=== PATIENT | female | born 1940 | race Caucasian/White ===

== ENCOUNTER → 2016-08-09 | Outpatient (CLI) | payer MEDICARE, BC ==
[~2016-08-09] MED LIST: ALIS1TAB6 PO; ASP81TEC PO; CLN.1T PO; CTLP20T PO; DILT120C PO; EST1.25T PO; ESTR0.5T PO; FEXO-104 PO; FURO40TA4 PO; HYDR-2890 PO; KCL10CCR PO; LVT.025T PO; MECL12.579 PO; METO100T2 PO; METO100T5 PO; METR500T PO; OMEP40CA36 PO; PHEN118S12 PO; PRM50SU PR
--- NOTE | 2016-08-09 14:02 | Diagnostic Imaging Report ---
Right breast diagnostic mammogram. CAD is utilized. COMPARISON: 02/10/2016. FINDINGS: The right breast is composed of heterogeneously dense parenchyma which may decrease mammographic sensitivity. A biopsy clip is again seen. There are groups of calcifications that appear similar to the previous study with slight heterogeneity noted. These are located within the upper outer aspect of the right breast. Background heterogeneously dense parenchyma is seen which may decrease mammographic sensitivity. IMPRESSION: Stable groups of calcifications in the upper outer aspect of the right breast. Ultrasound evaluation is pending. ACR BI-RADS Category 0: Incomplete. (Needs additional imaging evaluation). Result letter will be mailed to the patient. Note: At least 10% of breast cancer is not imaged by mammography. Dictated by: Dictated on workstation # [id number]
--- NOTE | 2016-08-09 17:27 | Diagnostic Imaging Report ---
EXAMINATION: Right breast ultrasound. INDICATION: Indeterminate calcifications at the upper outer aspect of the right breast. Dense breast parenchyma. FINDINGS: Unremarkable breast parenchyma is seen in the four-quadrants and retroareolar region with no underlying mass seen. The axilla was also scanned with no underlying abnormality seen. IMPRESSION: Negative study. The calcifications seen on mammography are indeterminate but favored to be benign given their stability. Another followup in six months is recommended when the patient is due for her bilateral mammogram to ensure further stability. ACR BI-RADS Category 3: Probably benign findings. Result letter will be mailed to the patient. Note: At least 10% of breast cancer is not imaged by mammography. Dictated by: Dictated on workstation # [id number]
== END ==
LOC: RAD 07:54
PROVIDERS: ATTEND Nurse Practitioner Family
DX: R92.8 Other abnormal and inconclusive findings on diagnostic imaging of breast (principal)
CPT/HCPCS: 76641

== ENCOUNTER → 2017-04-27 | Outpatient (CLI) | payer MEDICARE ==
--- NOTE | 2017-04-27 11:35 | Diagnostic Imaging Report ---
Indication: 6 month followup right breast calcifications. Comparison is made with prior right mammogram from 08/09/2016 and bilateral mammograms 02/10/2016, 01/12/2015. The current study was also evaluated with a Computer Aided Detection (CAD) system. Both breasts remain heterogeneously dense, limiting the sensitivity of mammography. Clusters of microcalcifications in the upper and outer aspect of the right breast and medial aspect of the right breast appears stable. Calcification in left breast are stable. There is a biopsy clip on the left. No mass is identified. No new calcifications are seen. Axillae are unremarkable. IMPRESSION: BI-RADS category 2 Stable bilateral mammograms. The patient may return to routine annual screening mammography. ACR BI-RADS Category 2: Benign findings. Result letter will be mailed to the patient. Note: At least 10% of breast cancer is not imaged by mammography. Dictated by: Dictated on workstation # [id number]
== END ==
LOC: RAD 08:50
PROVIDERS: ATTEND Nurse Practitioner Family
DX: R92.1 Mammographic calcification found on diagnostic imaging of breast (principal)
CPT/HCPCS: 77066

== ENCOUNTER → 2019-05-23 | Outpatient (CLI) | payer MEDICARE ==
--- NOTE | 2019-05-23 13:39 | Diagnostic Imaging Report ---
PROCEDURE: US Thyroid. TECHNIQUE: Multiple real-time grayscale images were obtained of the thyroid in various projections. INDICATION: Abnormal thyroid labs. FINDINGS: Right lobe of thyroid measures 4.1 x 1.1 x 1.5 cm and left lobe measures 3.6 x 1.0 x 0.9 cm. Isthmus is 2 mm in thickness. Right lobe of thyroid does show several tiny hypoechoic nodules, largest approximately 2-3 mm in size. These appear to be cystic most likely represent colloid cysts. Left lobe is unremarkable. No dominant thyroid mass is detected. IMPRESSION: Probable subcentimeter colloid cyst right lobe of thyroid. The study is otherwise unremarkable. No dominant mass is detected. Dictated by: Dictated on workstation # [id number]
== END ==
LOC: RAD 11:40
PROVIDERS: ATTEND Family Medicine
DX: R94.6 Abnormal results of thyroid function studies (principal)
CPT/HCPCS: 76536

== ENCOUNTER → 2019-05-28 | Outpatient (CLI) | payer MEDICARE ==
--- NOTE | 2019-05-28 11:55 | Diagnostic Imaging Report ---
CLINICAL INDICATION: Patient is hearing music in the house that no one else is hearing. Auditory hallucinations. EXAM: Axial CT scan of the brain performed without IV contrast. All CT scans use one or more of the following dose optimizing techniques: automated exposure control, MA and/or KvP adjustment based on patient size and exam type or iterative reconstruction. COMPARISON: None. FINDINGS: There is no evidence of acute cerebral infarct, intracranial hemorrhage, or gross mass effect. The brain parenchymal volume appears appropriate for patient's age. There is normal markham-white matter distinction. There is no significant midline shift or herniation. There is no evidence of hydrocephalus. The basal cisterns are unremarkable. The skull, extracranial soft tissue, and orbits are unremarkable. The paranasal sinuses are unremarkable. Temporal bones show no significant abnormality. IMPRESSION: Unremarkable CT scan of the brain. Dictated by: Dictated on workstation # [id number]
== END ==
LOC: RAD 10:42
PROVIDERS: ATTEND Nurse Practitioner Family
DX: R44.0 Auditory hallucinations (principal)
CPT/HCPCS: 70450

== ENCOUNTER 2019-09-22 20:48 | Inpatient (IN) | payer MEDICARE ==
[~2019-09-22] VITALS: Ht 160 cm; Wt 62.5 kg
[2019-09-22 20:59] VITALS: BP 145/59
[2019-09-22 21:07] VITALS: BP 139/73
[2019-09-22 21:15] VITALS: BP 148/60
--- NOTE | 2019-09-22 21:15 | NUR ---
WOUND CX SWAB COLLECTED FROM LEFT PHELAN BY Noreen JOSHI APRN.
[2019-09-22] MEDS ORDERED: ACETAMINOPHEN 500 MG TAB (TYLENOL) PO ONE (21:30)
--- NOTE | 2019-09-22 21:37 | Diagnostic Imaging Report ---
EXAMINATION: Chest 1 view HISTORY: Left foot swelling after a cat bite. COMPARISON: 05/03/2012 FINDINGS: There is mild atelectasis in the lung bases. Otherwise, the lungs are clear without edema or pneumonia. No pleural effusion or pneumothorax. Heart size is normal. IMPRESSION: 1. Mild atelectasis, otherwise clear lungs. Dictated by: Dictated on workstation # [id number]
--- OUTSIDE RECORDS SUMMARY | 2019-09-22 21:37 | XMS REPORT | Continuity of Care Document ---
Author Organization Unknown Address Unknown Phone Unavailable Allergies Active Description Code Type Severity Reaction Onset Reported/Identified Relationship to Patient Clinical Status Yes MELISA Inhibitors [id number] Dr miller Allergy Unknown N/A 03/31/2010 Yes Sulfa (Sulfonamide Antibiotics) [id number] 0491 Drug Allergy Unknown N/A 011 Medications There is no data. 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 12/17/2011 Ot 729.5 PAIN IN LIMB 02/03/2015 CHEMO SOLIS QUALITY CONTROL LAB TECHNICIAN Ot Z12.31 03/03/2015 MARIO ARRINGTON, ROBIN Andres Ot R06.00 03/03/2015 MARIO ARRINGTON, ROBIN Andres Ot Z87.891 03/11/2015 MARIO ARRINGTON, ROBIN Andres Ot R06.00 03/11/2015 ROBIN MARTIN MD Ot Z87.891 02/10/2016 Ot 793.82 INC ONCLUSIVE MAMMOGRAM 02/10/2016 Ot V76.12 OTH SCREEN MAMMO- MALIGN NEOPLASM OF [place] 02/10/2016 Ot 793.80 UNS PEC ABNORMAL MAMMOGRAM 02/10/2016 Ot 793.89 OTH (ABN) FINDINGS ON RADIOLOGICAL EXAMI 02/10/2016 Ot 729.5 PAIN IN LIMB 02/10/2016 Ot 729.81 SWE LLING OF LIMB 02/10/2016 Ot 611.89 OTH ER SPECIFIED DISORDERS OF BREAST 02/10/2016 Ot V67.9 FOLL OW-UP EXAM NOS 02/10/2016 Ot 217 BENIGN NEOPLASM BREAST 02/10/2016 Ot 610.8 YINKA GN MAMM DYSPLAS NEC 02/10/[address] PAIN NOS 02/10/2016 Ot E000.8 OTH ER EXTERNAL CAUSE STATUS 02/10/2016 Ot E849.0 ACC IDENT IN HOME 02/10/2016 Ot E928.9 ACC IDENT NOS 02/10/2016 ROBIN MARTIN MD Ot V76.12 OTH SCREEN MAMMO-MALIGN NEOPLASM OF [place] 02/10/2016 CHEMO SOLIS Ot Z12.31 ENCNTR SCREEN MAMMOGRAM FOR MALIGNANT NE 02/10/2016 ROBIN MARTIN MD Ot R06.00 DYSPNEA, UNSPECIFIED 02/10/2016 ROBIN MARTIN MD Ot Z87.891 PERSONAL HISTORY OF NICOTINE DEPENDENCE 02/11/2016 CHEMO SOLIS Ot Z12.31 ENCNTR SCREEN MAMMOGRAM FOR MALIGNANT NE 03/03/2016 CHEMO SOLIS Ot Z12.31 ENCNTR SCREEN MAMMOGRAM FOR MALIGNANT NE 08/08/2016 Ot 793.82 INC ONCLUSIVE MAMMOGRAM 08/08/2016 Ot V76.12 OTH SCREEN MAMMO- MALIGN NEOPLASM OF [place] 08/08/2016 Ot 793.80 UNS PEC ABNORMAL MAMMOGRAM 08/08/2016 Ot 793.89 OTH (ABN) FINDINGS ON RADIOLOGICAL EXAMI 08/08/2016 Ot 729.5 PAIN IN LIMB 08/08/2016 Ot 729.81 SWE LLING OF LIMB 08/08/2016 Ot 611.89 OTH ER SPECIFIED DISORDERS OF BREAST 08/08/2016 Ot V67.9 FOLL OW-UP EXAM NOS 08/08/2016 Ot 217 BENIGN NEOPLASM BREAST 08/08/2016 Ot 610.8 YINKA GN MAMM DYSPLAS NEC 08/08/[address] PAIN NOS 08/08/2016 Ot E000.8 OTH ER EXTERNAL CAUSE STATUS 08/08/2016 Ot E849.0 ACC IDENT IN HOME 08/08/2016 Ot E928.9 ACC IDENT NOS 08/08/2016 ROBIN MARTIN MD Ot V76.12 OTH SCREEN MAMMO-MALIGN NEOPLASM OF [place] 08/08/2016 CHEMO SOLIS Ot Z12.31 ENCNTR SCREEN MAMMOGRAM FOR MALIGNANT NE 08/08/2016 ROBIN MARTIN MD Ot R06.00 DYSPNEA, UNSPECIFIED 08/08/2016 ROBIN MARTIN MD Ot Z87.891 PERSONAL HISTORY OF NICOTINE DEPENDENCE 08/08/2016 CHEMO SOLIS Ot Z12.31 ENCNTR SCREEN MAMMOGRAM FOR MALIGNANT NE 08/08/2016 ABHILASH, SAL M FOOD PREPARATION KITCHEN AIDE Ot R92.8 OTH ABN AND INCONCLUSIVE FINDINGS ON DX 08/08/2016 SAL HUNG FOOD PREPARATION KITCHEN AIDE Ot R92.8 OTH ABN AND INCONCLUSIVE FINDINGS ON DX 08/09/2016 SAL HUNG FOOD PREPARATION KITCHEN AIDE Ot R92.8 OTH ABN AND INCONCLUSIVE FINDINGS ON DX 08/09/2016 SAL HUNG FOOD PREPARATION KITCHEN AIDE Ot R92.8 OTH ABN AND INCONCLUSIVE FINDINGS ON DX 08/09/2016 SAL HUNG FOOD PREPARATION KITCHEN AIDE Ot R92.8 OTH ABN AND INCONCLUSIVE FINDINGS ON DX 08/09/2016 SAL HUNG FOOD PREPARATION KITCHEN AIDE Ot R92.8 OTH ABN AND INCONCLUSIVE FINDINGS ON DX 08/09/2016 SAL HUNG FOOD PREPARATION KITCHEN AIDE Ot R92.8 OTH ABN AND INCONCLUSIVE FINDINGS ON DX 09/01/2016 SAL HUGN FOOD PREPARATION KITCHEN AIDE Ot R92.8 OTH ABN AND INCONCLUSIVE FINDINGS ON DX 09/06/2016 SAL HUNG FOOD PREPARATION KITCHEN AIDE Ot R92.8 OTH ABN AND INCONCLUSIVE FINDINGS ON DX 02/14/2017 SAL HUNG FOOD PREPARATION KITCHEN AIDE Ot R92.8 OTH ABN AND INCONCLUSIVE FINDINGS ON DX 02/14/2017 Ot 729.5 PAIN IN LIMB 02/14/2017 Ot 729.81 SWE LLING OF LIMB 02/14/2017 Ot 611.89 OTH ER SPECIFIED DISORDERS OF BREAST 02/14/2017 Ot V67.9 FOLL OW-UP EXAM NOS 02/14/2017 Ot 217 BENIGN NEOPLASM BREAST 02/14/2017 Ot 610.8 YINKA GN MAMM DYSPLAS NEC 02/14/[address] PAIN NOS 02/14/2017 Ot E000.8 OTH ER EXTERNAL CAUSE STATUS 02/14/2017 Ot E849.0 ACC IDENT IN HOME 02/14/2017 Ot E928.9 ACC IDENT NOS 02/14/2017 ROBIN MARTIN MD Ot V76.12 OTH SCREEN MAMMO-MALIGN NEOPLASM OF [place] 02/14/2017 CHEMO SOLIS Ot Z12.31 ENCNTR SCREEN MAMMOGRAM FOR MALIGNANT NE 02/14/2017 ROBIN MARTIN MD Ot R06.00 DYSPNEA, UNSPECIFIED 02/14/2017 ROBIN MARTIN MD Ot Z87.891 PERSONAL HISTORY OF NICOTINE DEPENDENCE 02/14/2017 CHEMO SOLIS Ot Z12.31 ENCNTR SCREEN MAMMOGRAM FOR MALIGNANT NE 02/14/2017 SAL HUNG APRN Ot R92.8 OTH ABN AND INCONCLUSIVE FINDINGS ON DX 02/14/2017 SAL HUNG APRN Ot R92.8 OTH ABN AND INCONCLUSIVE FINDINGS ON DX 04/23/2017 SAL HUNG APRN Ot R92.1 MAMMOGRAPHIC CALCIFCN FOUND ON DIAGNOSTI 04/27/2017 Ot 729.5 PAIN IN LIMB 04/27/2017 Ot 729.81 SWE LLING OF LIMB 04/27/2017 Ot 611.89 OTH ER SPECIFIED DISORDERS OF BREAST 04/27/2017 Ot V67.9 FOLL OW-UP EXAM NOS 04/27/2017 Ot 217 BENIGN NEOPLASM BREAST 04/27/2017 Ot 610.8 YINKA GN MAMM DYSPLAS NEC 04/27/[address] PAIN NOS 04/27/2017 Ot E000.8 OTH ER EXTERNAL CAUSE STATUS 04/27/2017 Ot E849.0 ACC IDENT IN HOME 04/27/2017 Ot E928.9 ACC IDENT NOS 04/27/2017 MARIO ARRINGTON, ROBIN Andres Ot V76.12 OTH SCREEN MAMMO-MALIGN NEOPLASM OF [place] 04/27/2017 CHEMO SOLIS Ot Z12.31 ENCNTR SCREEN MAMMOGRAM FOR MALIGNANT NE 04/27/2017 ROBIN MARTIN MD Ot R06.00 DYSPNEA, UNSPECIFIED 04/27/2017 ROBIN MARTIN MD Ot Z87.891 PERSONAL HISTORY OF NICOTINE DEPENDENCE 04/27/2017 CHEMO SOLIS Ot Z12.31 ENCNTR SCREEN MAMMOGRAM FOR MALIGNANT NE 04/27/2017 SAL HUNG APRN Ot R92.8 OTH ABN AND INCONCLUSIVE FINDINGS ON DX 04/27/2017 SAL HUNG APRN Ot R92.1 MAMMOGRAPHIC CALCIFCN FOUND ON DIAGNOSTI 04/30/2017 SAL HUNG APRN Ot R92.1 MAMMOGRAPHIC CALCIFCN FOUND ON DIAGNOSTI 06/15/2017 SAL HUNG APRN Ot R92.1 MAMMOGRAPHIC CALCIFCN FOUND ON DIAGNOSTI 06/20/2017 SAL HUNG APRN Ot R92.1 MAMMOGRAPHIC CALCIFCN FOUND ON DIAGNOSTI 05/20/2019 MARIO MD, ROBIN A Ot V76.12 OTH SCREEN MAMMO-MALIGN NEOPLASM OF [place] 05/20/2019 CHEMO SOLIS QUALITY CONTROL LAB TECHNICIAN Ot Z12.31 ENCNTR SCREEN MAMMOGRAM FOR MALIGNANT NE 05/20/2019 ROBIN MARTIN MD Ot R06.00 DYSPNEA, UNSPECIFIED 05/20/2019 ROBIN MARTIN MD Ot Z87.891 PERSONAL HISTORY OF NICOTINE DEPENDENCE 05/20/2019 CHEMO SOLISP Ot Z12.31 ENCNTR SCREEN MAMMOGRAM FOR MALIGNANT NE 05/20/2019 SAL HUNG APRN Ot R92.8 OTH ABN AND INCONCLUSIVE FINDINGS ON DX 05/20/2019 SAL HUNG FOOD PREPARATION KITCHEN AIDE Ot R92.1 MAMMOGRAPHIC CALCIFCN FOUND ON DIAGNOSTI 05/22/2019 ROBIN MARTIN MD Ot V76.12 OTH SCREEN MAMMO-MALIGN NEOPLASM OF [place] 05/22/2019 CHEMO SOLISP Ot Z12.31 ENCNTR SCREEN MAMMOGRAM FOR MALIGNANT NE 05/22/2019 ROBIN MARTIN MD Ot R06.00 DYSPNEA, UNSPECIFIED 05/22/2019 ROBIN MARTIN MD Ot Z87.891 PERSONAL HISTORY OF NICOTINE DEPENDENCE 05/22/2019 CHEMO SOLISP Ot Z12.31 ENCNTR SCREEN MAMMOGRAM FOR MALIGNANT NE 05/22/2019 SAL HUNG APRN Ot R92.8 OTH ABN AND INCONCLUSIVE FINDINGS ON DX 05/22/2019 SAL HUNG FOOD PREPARATION KITCHEN AIDE Ot R92.1 MAMMOGRAPHIC CALCIFCN FOUND ON DIAGNOSTI 05/23/2019 ROBIN MARTIN MD Ot V76.12 OTH SCREEN MAMMO-MALIGN NEOPLASM OF [place] 05/23/2019 CHEMO OSLIS QUALITY CONTROL LAB TECHNICIAN Ot Z12.31 ENCNTR SCREEN MAMMOGRAM FOR MALIGNANT NE 05/23/2019 ROBIN MARTIN MD Ot R06.00 DYSPNEA, UNSPECIFIED 05/23/2019 ROBIN MARTIN MD Ot Z87.891 PERSONAL HISTORY OF NICOTINE DEPENDENCE 05/23/2019 CHEMO SOLISP Ot Z12.31 ENCNTR SCREEN MAMMOGRAM FOR MALIGNANT NE 05/23/2019 SAL HUNG APRN Ot R92.8 OTH ABN AND INCONCLUSIVE FINDINGS ON DX 05/23/2019 SAL HUNG FOOD PREPARATION KITCHEN AIDE Ot R92.1 MAMMOGRAPHIC CALCIFCN FOUND ON DIAGNOSTI 05/26/2019 ROBIN MARTIN MD Ot R94.6 ABNORMAL RESULTS OF THYROID FUNCTION SAI 05/27/2019 ROBIN MARTIN MD Ot V76.12 OTH SCREEN MAMMO-MALIGN NEOPLASM OF [place] 05/27/2019 CHEMO SOLIS Ot Z12.31 ENCNTR SCREEN MAMMOGRAM FOR MALIGNANT NE 05/27/2019 ROBIN MARTIN MD Ot R06.00 DYSPNEA, UNSPECIFIED 05/27/2019 MARIO ARRINGTON, ROBIN Andres Ot Z87.891 PERSONAL HISTORY OF NICOTINE DEPENDENCE 05/27/2019 CHEMO SOLIS Ot Z12.31 ENCNTR SCREEN MAMMOGRAM FOR MALIGNANT NE 05/27/2019 SAL HUNG APRN Ot R92.8 OTH ABN AND INCONCLUSIVE FINDINGS ON DX 05/27/2019 SAL HUNG APRN Ot R92.1 MAMMOGRAPHIC CALCIFCN FOUND ON DIAGNOSTI 05/27/2019 ROBIN MARTIN MD Ot R94.6 ABNORMAL RESULTS OF THYROID FUNCTION SAI 05/27/2019 ROBIN MARTIN MD Ot V76.12 OTH SCREEN MAMMO-MALIGN NEOPLASM OF [place] 05/27/2019 CHEMO SOLIS Ot Z12.31 ENCNTR SCREEN MAMMOGRAM FOR MALIGNANT NE 05/27/2019 ROBIN MARTIN MD Ot R06.00 DYSPNEA, UNSPECIFIED 05/27/2019 ROBIN MARTIN MD Ot Z87.891 PERSONAL HISTORY OF NICOTINE DEPENDENCE 05/27/2019 CHEMO SOLIS Ot Z12.31 ENCNTR SCREEN MAMMOGRAM FOR MALIGNANT NE 05/27/2019 SAL HUNG APRN Ot R92.8 OTH ABN AND INCONCLUSIVE FINDINGS ON DX 05/27/2019 SAL HUNG APRN Ot R92.1 MAMMOGRAPHIC CALCIFCN FOUND ON DIAGNOSTI 05/27/2019 ROBIN MARTIN MD Ot R94.6 ABNORMAL RESULTS OF THYROID FUNCTION SAI 05/28/2019 ROBIN MARTIN MD Ot V76.12 OTH SCREEN MAMMO-MALIGN NEOPLASM OF [place] 05/28/2019 CHEMO SOLIS Ot Z12.31 ENCNTR SCREEN MAMMOGRAM FOR MALIGNANT NE 05/28/2019 ROBIN MARTIN MD Ot R06.00 DYSPNEA, UNSPECIFIED 05/28/2019 ROBIN MARTIN MD Ot Z87.891 PERSONAL HISTORY OF NICOTINE DEPENDENCE 05/28/2019 CHEMO SOLIS Ot Z12.31 ENCNTR SCREEN MAMMOGRAM FOR MALIGNANT NE 05/28/2019 SAL HUNG APRN Ot R92.8 OTH ABN AND INCONCLUSIVE FINDINGS ON DX 05/28/2019 SAL HUNG APRN Ot R92.1 MAMMOGRAPHIC CALCIFCN FOUND ON DIAGNOSTI 05/28/2019 ROBIN MARTIN MD Ot R94.6 ABNORMAL RESULTS OF THYROID FUNCTION SAI 05/28/2019 ROBIN MARTIN MD Ot V76.12 OTH SCREEN MAMMO-MALIGN NEOPLASM OF [place] 05/28/2019 CHEMO SOLIS Ot Z12.31 ENCNTR SCREEN MAMMOGRAM FOR MALIGNANT NE 05/28/2019 ROBIN MARTIN MD Ot R06.00 DYSPNEA, UNSPECIFIED 05/28/2019 ROBIN MARTIN MD Ot Z87.891 PERSONAL HISTORY OF NICOTINE DEPENDENCE 05/28/2019 CHEMO SOLIS Ot Z12.31 ENCNTR SCREEN MAMMOGRAM FOR MALIGNANT NE 05/28/2019 SAL HUNG APRN Ot R92.8 OTH ABN AND INCONCLUSIVE FINDINGS ON DX 05/28/2019 SAL HUNG APRN Ot R92.1 MAMMOGRAPHIC CALCIFCN FOUND ON DIAGNOSTI 05/28/2019 ROBIN MARTIN MD Ot R94.6 ABNORMAL RESULTS OF THYROID FUNCTION SAI 06/13/2019 ROBIN MARTIN MD Ot R94.6 ABNORMAL RESULTS OF THYROID FUNCTION SAI 06/19/2019 CHEMO SOLIS Ot R44.0 AUDITORY HALLUCINATIONS Procedures There is no data. Results There is no data. Encounters ACCT No. Visit Date/Time Discharge Status Pt. Type Provider Facility Loc./Unit Complaint [id number] 05/28/2019 10:42:00 020 23:59:59 CLS Outpatient CHEMO SOLIS [facility] RAD HALLUCINATION [id number] 05/23/2019 11:40:00 020 23:59:59 CLS Outpatient ROBIN MARTIN MD [facility] RAD ABNORMAL THYROID LABS [id number] 04/27/2017 08:50:00 018 23:59:59 CLS Outpatient SAL HUNG FOOD PREPARATION KITCHEN AIDE [facility] RAD CALCIFICATION RT BREAST [id number] 02/14/2017 09:51:00 017 23:59:59 CLS Preadmit SAL HUNG FOOD PREPARATION KITCHEN AIDE [facility] RAD CALCIFICATIONS R BREAST [id number] 08/14/2016 09:20:00 017 23:59:59 CLS Preadmit CHEMO SOLIS QUALITY CONTROL LAB TECHNICIAN [facility] RAD R92.8 [id number] 08/09/2016 07:54:00 017 23:59:59 CLS Outpatient SAL HUNG FOOD PREPARATION KITCHEN AIDE [facility] RAD 6 MONTH F/U R92.8 [id number] 02/10/2016 12:19:00 016 23:59:59 CLS Outpatient CHEMO SOLIS [facility] RAD SCREENING [id number] 02/10/2015 08:13:00 015 23:59:59 CLS Outpatient ROBIN MARTIN MD Via [facility] RT DYSPNEA,HX OF TOBACCO A BUSE [id number] 01/12/2015 08:15:00 015 23:59:59 CLS Outpatient CHEMO SOLIS [facility] RAD SCREENING [id number] 01/08/2014 08:34:00 014 23:59:59 CLS Outpatient ROBIN MARTIN MD [facility] RAD SCREENING [id number] 09/22/2019 20:49:[address] Emergency ANDREAS JOSHI [facility] [address] ER VOMITING / SOA / WEAKNESS [id number] 05/03/2012 10:30:00 Document Registration [id number] 04/29/2012 08:27:00 Document Registration [id number] 04/18/2012 12:49:00 Document Registration [id number] 01/09/2012 11:17:00 Document Registration [id number] 12/17/2011 15:41:00 Document Registration [id number] 08/09/2011 11:09:00 Document Registration [id number] 03/14/2011 12:51:00 Document Registration [id number] 03/03/2011 10:07:00 Document Registration
[2019-09-22 22:00] VITALS: BP 140/67
[2019-09-22 22:02] LABS: BASOPHILS % (AUTO) 0 % (0-10); EOSINOPHILS % (AUTO) 0 % (0-10); HEMATOCRIT 43 % (35-52); HEMOGLOBIN 14.3 G/DL (11.5-16.0); LYMPHOCYTES # (AUTO) 0.8 X 10^3 (1.0-4.0); LYMPHOCYTES % (AUTO) 4 % (12-44); MEAN CORPUSCULAR HEMOGLOBIN 31 PG (25-34); MEAN CORPUSCULAR HGB CONC 34 G/DL (32-36); MEAN CORPUSCULAR VOLUME 91 FL (80-99); MEAN PLATELET VOLUME 9.8 FL (7.4-10.4); MONOCYTES # (AUTO) 0.7 X 10^3 (0.0-1.0); MONOCYTES % (AUTO) 4 % (0-12); NEUTROPHILS # (AUTO) 19.4 X 10^3 (1.8-7.8); NEUTROPHILS % (AUTO) 93 % (42-75); PLATELET COUNT 207 10^3/uL (130-400); RED CELL DISTRIBUTION WIDTH 13.3 % (10.0-14.5)
[2019-09-22 22:13] LABS: PROTHROMBIN TIME PATIENT 13.9 SEC (12.2-14.7)
[2019-09-22 22:18] LABS: BAND NEUTROPHILS 9 %; BASOPHILS % (MANUAL) 0 %; EOSINOPHILS % (MANUAL) 0 %; LYMPHOCYTES % (MANUAL) 6 %; MONOCYTES % (MANUAL) 8 %; NEUTROPHILS % (MANUAL) 77 %
[2019-09-22 22:19] LABS: RBC MORPH NORMAL
[2019-09-22 22:21] LABS: ALANINE AMINOTRANSFERASE 13 U/L (0-55); ALBUMIN 4.6 GM/DL (3.2-4.5); ALKALINE PHOSPHATASE 72 U/L (40-136); BILIRUBIN,TOTAL 1.7 MG/DL (0.1-1.0); BUN/CREATININE RATIO 21; CALCIUM 9.7 MG/DL (8.5-10.1); CARBON DIOXIDE 20 MMOL/L (21-32); CHLORIDE 101 MMOL/L (98-107); CREATININE SERUM 0.86 MG/DL (0.60-1.30); GFR ESTIMATED > 60; GLUCOSE 117 MG/DL (70-105); POTASSIUM 4.2 MMOL/L (3.6-5.0); SODIUM 135 MMOL/L (135-145); TOTAL PROTEIN 7.6 GM/DL (6.4-8.2)
[2019-09-22] MEDS ORDERED: NS (IVPB) 100 ML ONE (22:39)
[2019-09-22] MEDS ORDERED: AMPICILLIN/SULBACTAM 3 GM VIAL (UNASYN) ONE (22:39)
--- NOTE | 2019-09-22 22:39 | NUR ---
[place] ([facility]) [phone] [place] ([facility]) [phone]
--- OUTSIDE RECORDS SUMMARY | 2019-09-22 22:39 | XMS REPORT | Continuity of Care Document ---
Author Organization Unknown Address Unknown Phone Unavailable Allergies Active Description Code Type Severity Reaction Onset Reported/Identified Relationship to Patient Clinical Status Yes MELISA Inhibitors [id number] Dr miller Allergy Unknown N/A 03/31/2010 Yes Sulfa (Sulfonamide Antibiotics) [id number] 0491 Drug Allergy Unknown N/A 011 Medications There is no data. 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 12/17/2011 Ot 729.5 PAIN IN LIMB 02/03/2015 CHEMO SOLIS PHYSICIAN AIDE Ot Z12.31 03/03/2015 MARIO ARRINGTON, ROBIN Andres [...] Ot V76.12 OTH SCREEN MAMMO-MALIGN NEOPLASM OF [place] 02/10/2016 CHEMO SOLIS Ot Z12.31 ENCNTR SCREEN [...] 08/08/2016 Ot E928.9 ACC IDENT NOS 08/08/2016 RBOIN MARTIN MD Ot V76.12 OTH SCREEN MAMMO-MALIGN NEOPLASM OF [place] 08/08/2016 CHEMO SOLIS Ot Z12.31 ENCNTR SCREEN MAMMOGRAM FOR MALIGNANT NE 08/08/2016 ROBIN MARTIN MD Ot R06.00 DYSPNEA, UNSPECIFIED 08/08/2016 ROBIN MARTIN MD Ot Z87.891 PERSONAL HISTORY OF NICOTINE DEPENDENCE 08/08/2016 CHEMO SOLIS Ot Z12.31 ENCNTR SCREEN MAMMOGRAM FOR MALIGNANT NE 08/08/2016 ABHILASH, SAL M EMBLEM MAKER Ot R92.8 OTH ABN AND INCONCLUSIVE FINDINGS ON DX 08/08/2016 SAL HUNG EMBLEM MAKER Ot R92.8 OTH ABN AND INCONCLUSIVE FINDINGS ON DX 08/09/2016 SAL HUNG EMBLEM MAKER Ot R92.8 OTH ABN AND INCONCLUSIVE FINDINGS ON DX 08/09/2016 SAL HUNG EMBLEM MAKER Ot R92.8 OTH ABN AND INCONCLUSIVE FINDINGS ON DX 08/09/2016 SAL HUNG EMBLEM MAKER Ot R92.8 OTH ABN AND INCONCLUSIVE FINDINGS ON DX 08/09/2016 SAL HUNG EMBLEM MAKER Ot R92.8 OTH ABN AND INCONCLUSIVE FINDINGS ON DX 08/09/2016 SAL HUNG EMBLEM MAKER Ot R92.8 OTH ABN AND INCONCLUSIVE FINDINGS ON DX 09/01/2016 SAL HUNG EMBLEM MAKER Ot R92.8 OTH ABN AND INCONCLUSIVE FINDINGS ON DX 09/06/2016 SAL HUNG EMBLEM MAKER Ot R92.8 OTH ABN AND INCONCLUSIVE FINDINGS ON DX 02/14/2017 SAL HUNG EMBLEM MAKER Ot R92.8 OTH ABN AND INCONCLUSIVE FINDINGS [...] MAMMO-MALIGN NEOPLASM OF [place] 05/20/2019 CHEMO SOLIS PHYSICIAN AIDE Ot Z12.31 ENCNTR SCREEN MAMMOGRAM FOR MALIGNANT NE 05/20/2019 ROBIN MARTIN MD Ot R06.00 DYSPNEA, UNSPECIFIED 05/20/2019 ROBIN MARTIN MD Ot Z87.891 PERSONAL HISTORY OF NICOTINE DEPENDENCE 05/20/2019 CHEMO SOLISP Ot Z12.31 ENCNTR SCREEN MAMMOGRAM FOR MALIGNANT NE 05/20/2019 SAL HUNG APRN Ot R92.8 OTH ABN AND INCONCLUSIVE FINDINGS ON DX 05/20/2019 SAL HUNG EMBLEM MAKER Ot R92.1 MAMMOGRAPHIC CALCIFCN FOUND ON DIAGNOSTI [...] INCONCLUSIVE FINDINGS ON DX 05/22/2019 SAL HUNG EMBLEM MAKER Ot R92.1 MAMMOGRAPHIC CALCIFCN FOUND ON DIAGNOSTI 05/23/2019 ROBIN MARTIN MD Ot V76.12 OTH SCREEN MAMMO-MALIGN NEOPLASM OF [place] 05/23/2019 CHEMO SOLIS PHYSICIAN AIDE Ot Z12.31 ENCNTR SCREEN MAMMOGRAM FOR MALIGNANT NE 05/23/2019 ROBIN MARTIN MD Ot R06.00 DYSPNEA, UNSPECIFIED 05/23/2019 ROBIN MARTIN MD Ot Z87.891 PERSONAL HISTORY OF NICOTINE DEPENDENCE 05/23/2019 CHEMO SOLISP Ot Z12.31 ENCNTR SCREEN MAMMOGRAM FOR MALIGNANT NE 05/23/2019 SAL HUNG APRN Ot R92.8 OTH ABN AND INCONCLUSIVE FINDINGS ON DX 05/23/2019 SAL HUNG EMBLEM MAKER Ot R92.1 MAMMOGRAPHIC CALCIFCN FOUND ON DIAGNOSTI [...] 06/19/2019 CHEMO SOLIS Ot R44.0 AUDITORY HALLUCINATIONS 09/22/2019 CHEMO SOLISP Ot Z12.31 ENCNTR SCREEN MAMMOGRAM FOR MALIGNANT NE 09/22/2019 ROBIN MARTIN MD Ot R06.00 DYSPNEA, UNSPECIFIED 09/22/2019 ROBIN MARTIN MD Ot Z87.891 PERSONAL HISTORY OF NICOTINE DEPENDENCE 09/22/2019 CHEMO SOLISP Ot Z12.31 ENCNTR SCREEN MAMMOGRAM FOR MALIGNANT NE 09/22/2019 ABHILASH, SAL M EMBLEM MAKER Ot R92.8 OTH ABN AND INCONCLUSIVE FINDINGS ON DX 09/22/2019 SAL HUNG APRN Ot R92.1 MAMMOGRAPHIC CALCIFCN FOUND ON DIAGNOSTI 09/22/2019 ROBIN MARTIN MD Ot R94.6 ABNORMAL RESULTS OF THYROID FUNCTION SAI 09/22/2019 CHEMO SOLIS Ot R44.0 AUDITORY HALLUCINATIONS Procedures There is no data. Results There is no data. Encounters ACCT No. Visit Date/Time Discharge Status Pt. Type Provider Facility Loc./Unit Complaint [id number] 05/28/2019 10:42:00 020 23:59:59 CLS Outpatient CHEMO SOLIS [facility] RAD HALLUCINATION [id number] 05/23/2019 11:40:00 020 23:59:59 CLS Outpatient RBOIN MARTIN MD [facility] RAD ABNORMAL THYROID LABS [id number] 04/27/2017 08:50:00 018 23:59:59 CLS Outpatient SAL HUNG APRN [facility] RAD CALCIFICATION RT BREAST [id number] 02/14/2017 09:51:00 017 23:59:59 CLS Preadmit SAL HUNG APRN [facility] RAD CALCIFICATIONS R BREAST [id number] 08/14/2016 09:20:00 017 23:59:59 CLS Preadmit CHEMO SOLIS [facility] RAD R92.8 [id number] 08/09/2016 07:54:00 017 23:59:59 CLS Outpatient SAL HUNG APRN [facility] RAD 6 MONTH F/U R92.8 [id number] 02/10/2016 12:19:00 016 23:59:59 CLS Outpatient CHEMO SOLIS [facility] RAD SCREENING [id number] 02/10/2015 08:13:00 015 23:59:59 CLS Outpatient ROBIN MARTIN MD [facility] RT DYSPNEA,HX OF TOBACCO A BUSE [id number] 01/12/2015 08:15:00 015 23:59:59 CLS Outpatient CHEMO SOLIS [facility] RAD SCREENING [id number] 01/08/2014 08:34:00 014 23:59:59 CLS Outpatient ROBIN MARTIN MD [facility] RAD SCREENING [id number] 09/22/2019 21:20:[address] Inpatient ROBIN MARTIN MD [facility] 4TH LLE CELLULITIS, CAT BITE [id number] 05/03/2012 10:30:00 Document Registration [id number] 04/29/2012 08:27:00 Document Registration [id number] 04/18/2012 12:49:00 Document Registration [id number] 01/09/2012 11:17:00 Document Registration [id number] 12/17/2011 15:41:00 Document Registration [id number] 08/09/2011 11:09:00 Document Registration [id number] 03/14/2011 12:51:00 Document Registration [id number] 03/03/2011 10:07:00 Document Registration
[2019-09-22] MEDS ORDERED: AMPICILLIN/SULBACTAM INJECTION 3 GM in NS (IVPB) 100 ML IV ONE (22:45)
--- NOTE | 2019-09-22 22:45 | ED Integumentary General ---
General Chief Complaint: Skin/Wound Problems Stated Complaint: LLE CELLULITIS, CAT BITE Nursing Triage Note: TO ED VIA POV AND TO COVID-19 PRECAUTION UNIT R/T C/O FEVER, SHAKY, POSSIBLE SEPSIS. PT STATES HER OUTSIDE CAT BIT HER ON LEFT LEG LAST NIGHT. MX CAT BITES. LEFT LEG IS RED AND EDEMATOUS FROM CALF DOWN. Source: patient Exam Limitations: no limitations History of Present Illness Date Seen by Provider: Sep 22, 2019 Time Seen by Provider: 21:04 Initial Comments 79-year-old female who presents to the emergency room with complaints of fever and redness and swelling to her left lower extremity after a cat bite. She reports that she has been inside and outside cat has bitten her once on the right forearm and once on the left allen. She has redness and swelling that extends down from her calf. She reports that she took 500 mg of Keflex by mouth prior to arrival to the emergency room. Timing/Duration: yesterday Associated Symptoms: fever Allergies and Home Medications Allergies Coded Allergies: José Antonio Inhibitors (Unverified Allergy, Unknown, 03/31/10) Sulfa (Sulfonamides) (Unverified Allergy, Unknown, 03/31/10) Home Medications Aspirin 81 Mg Tabec, 81 MG PO DAILY, (Reported) Citalopram Hydrobromide 20 Mg Tablet, 0.5 EACH PO HS, (Reported) Clonidine Hcl 0.1 Mg Tab, 0.5 EACH PO HS, (Reported) Diltiazem Hcl 120 Mg Cap.sr.24h, 120 MG PO DAILY, (Reported) Estradiol 0.5 Mg Tablet, 0.5 MG PO DAILY, (Reported) Fexofenadine Hcl 180 Mg Tablet, 180 MG PO DAILY, (Reported) Furosemide 40 Mg Tablet, 1 EACH PO DAILY, (Reported) Hydrocodone Bit/Acetaminophen 1 Each Tablet, 1 EACH PO NEEDED Prescribed by: LEANA BIRD on 12/17/111822 Levothyroxine Sodium 25 Mcg Tablet, 3 EACH PO DAILY, (Reported) Meclizine Hcl 12.5 Mg Tablet, 1 EACH PO DAILY PRN, (Reported) Metoprolol Tartrate 100 Mg Tablet, 1 EACH PO BID, (Reported) Omeprazole 40 Mg Capsule.dr, 40 MG PO DAILY, (Reported) Potassium Chloride 10 Meq Tablet.sa, 10 MEQ PO DAILY, (Reported) Patient Home Medication List Home Medication List Reviewed: Yes Review of Systems Review of Systems Constitutional: see HPI; No chills, No fever Skin: see HPI, other (redness and swelling to the left lower ext.) All Other Systems Reviewed Negative Unless Noted: Yes Past Qicknjg-Pnjlnx-Ugwlwk Hx Past Med/Social Hx: Reviewed Nursing Past Med/Soc Hx Patient Social History Recent Foreign Travel: No Contact w/Someone Who Travel: No Recent Infectious Disease Expo: No Recent Hopitalizations: No Physical Abuse: No Sexual Abuse: No Mistreated: No Fear: No Immunizations Up To Date Date of Pneumonia Vaccine: Mar 26, 2008 Past Medical History Surgeries: Yes (EXP. LAP AND TOTAL ABD. HYST.) Respiratory: Yes Cardiac: Yes Neurological: No Reproductive Disorders: Yes Gastrointestinal: Yes (GERDS DISEASE) Musculoskeletal: Yes (RIGHT KNEE PAIN) Endocrine: Yes Psychosocial: Yes Blood Disorders: No Family Medical History Reviewed Nursing Family Hx Physical Exam Vital Signs Vital Signs - First Documented 09/22/19 09/22/19 20:58 20:59 Temp 37.3 Pulse 78 Resp 18 B/P (MAP) 148/60 (89) Pulse Ox 98 O2 Delivery Room Air Capillary Refill : Less Than 3 Seconds General Appearance: WD/WN, no apparent distress Respiratory: chest non-tender, lungs clear, normal breath sounds, no respiratory distress, no accessory muscle use Gastrointestinal: normal bowel sounds, non tender, soft, no organomegaly, no pulsatile mass Neurologic/Psychiatric: alert, normal mood/affect, oriented x 3 Skin: normal color, warm/dry Skin Problem Character: swelling (And erythema to the left lower extremity sta rting at the calf extending down to the foot.) Progress/Results/Core Measures Results/Orders My Orders Orders - ANDREAS JOSHI Cbc With Automated Diff (09/22/19 21:02) Comprehensive Metabolic Panel (09/22/19 21:02) Blood Culture (09/22/19 21:02) Sputum Culture (09/22/19 21:02) Protime With Inr (09/22/19 21:02) Partial Thromboplastin Time (09/22/19 21:02) Chest 1 View, Ap/Pa Only (09/22/19 21:02) Ed Iv/Invasive Line Start (09/22/19 21:02) Ed Iv/Invasive Line Start (09/22/19 21:02) Vital Signs Adult Sepsis Patie Q15M (09/22/19 21:02) O2 (09/22/19 21:02) Remove Rings In Anticipation O (09/22/19 21:02) Wound Culture (09/22/19 21:02) Lactic Acid Analyzer (09/22/19 21:02) Manual Differential (09/22/19 21:23) Vital Signs/I&O 09/22/19 09/22/19 09/22/19 09/22/19 20:58 20:59 21:07 21:15 Temp 37.3 37.3 37.3 37.3 Pulse 78 88 78 78 Resp 18 18 18 18 B/P (MAP) 148/60 (89) 145/59 (87) 139/73 (95) 148/60 (89) Pulse Ox 98 97 96 O2 Delivery Room Air Room Air Room Air Room Air Blood Pressure Mean: 91 Departure Communication (Admissions) Time/Spoke to Admitting Phy: 22:00 I have discussed the case with Dr. Muñiz and she agrees to accept the patient to her services. Dr. Berkowitz will also be following the patient. She recommend giving the patient Unasyn for antibiotic coverage. Impression Primary Impression: Cat bite Additional Impression: Cellulitis of left lower extremity Disposition: ADMITTED INPATIENT Condition: Stable/Unchanged Admissions Decision to Admit Reason: Admit from ER (General) Decision to Admit/Date: Sep 22, 2019 Time/Decision to Admit Time: 22:44 Departure-Patient Inst. Referrals: ROBIN MUÑIZ MD (PCP/Family) Primary Care Physician ANDREAS JOSHI Sep 22, 2019 22:45
--- NOTE | 2019-09-22 22:51 | NUR ---
UNASYN OBTAINED FROM MAIN ER SIDE AT THIS TIME. [facility] HERE FOR TRANSPORT. UNASYN TRANSPORTED WITH PT TO BE GIVEN ON ADMIT. JONH CANO NOTIFIED AND WILL ADMINISTER MEDICATION.
[2019-09-22 23:04] VITALS: BP 117/62
[2019-09-22 23:48] VITALS: BP 117/62
[2019-09-23] MEDS ORDERED: ONDANSETRON 4 MG/2 ML (SDV) Z0FRAN IV PRN (00:30)
[2019-09-23] MEDS ORDERED: ACETAMINOPHEN 325 MG TABLET PO PRN (00:30)
[2019-09-23 04:00] VITALS: BP 107/57
[2019-09-23 05:25] LABS: BASOPHILS % (AUTO) 0 % (0-10); EOSINOPHILS % (AUTO) 0 % (0-10); HEMATOCRIT 35 % (35-52); HEMOGLOBIN 12.1 G/DL (11.5-16.0); LYMPHOCYTES # (AUTO) 1.8 X 10^3 (1.0-4.0); LYMPHOCYTES % (AUTO) 7 % (12-44); MEAN CORPUSCULAR HEMOGLOBIN 31 PG (25-34); MEAN CORPUSCULAR HGB CONC 34 G/DL (32-36); MEAN CORPUSCULAR VOLUME 90 FL (80-99); MEAN PLATELET VOLUME 9.3 FL (7.4-10.4); MONOCYTES # (AUTO) 1.6 X 10^3 (0.0-1.0); MONOCYTES % (AUTO) 6 % (0-12); NEUTROPHILS # (AUTO) 23.4 X 10^3 (1.8-7.8); NEUTROPHILS % (AUTO) 87 % (42-75); PLATELET COUNT 163 10^3/uL (130-400); RED CELL DISTRIBUTION WIDTH 13.1 % (10.0-14.5); WHITE BLOOD COUNT 26.8 10^3/uL (4.3-11.0)
[2019-09-23 05:42] LABS: ALBUMIN 3.5 GM/DL (3.2-4.5); CHLORIDE 105 MMOL/L (98-107); POTASSIUM 3.8 MMOL/L (3.6-5.0); SODIUM 135 MMOL/L (135-145)
[2019-09-23 05:43] LABS: CALCIUM 8.7 MG/DL (8.5-10.1)
[2019-09-23 05:44] LABS: GLUCOSE 112 MG/DL (70-105); TOTAL PROTEIN 5.7 GM/DL (6.4-8.2)
[2019-09-23 05:46] LABS: BILIRUBIN,TOTAL 1.6 MG/DL (0.1-1.0); CARBON DIOXIDE 20 MMOL/L (21-32)
[2019-09-23 05:48] LABS: ALKALINE PHOSPHATASE 52 U/L (40-136); CREATININE SERUM 0.77 MG/DL (0.60-1.30); GFR ESTIMATED > 60
[2019-09-23 05:49] LABS: BUN/CREATININE RATIO 23
[2019-09-23 05:51] LABS: ALANINE AMINOTRANSFERASE 9 U/L (0-55)
[2019-09-23] MEDS: AMPICILLIN/SULBACTAM 3 GM/NS 100 ML IVPB IV SCH ×6 (06:26→21:34)
[2019-09-23 08:00] VITALS: BP 100/58
--- NOTE | 2019-09-23 10:43 | History & Physical ---
History of Present Illness History of Present Illness Reason for visit/HPI 79 yo F admitted last night for left lower leg cellulitis secondary to her cats biting her. Her 2 cats have changed their attitudes since her in June. One cat lives inside, the other goes outside during the day. Now her left leg is warm, hot, swollen, red, and really painful. She was started on unasyn last night and this AM her pain is significantly better, swelling improved and she felt good enough to eat. The cats have had rabies vaccines but not recently. She was actually going to t rakan them to the vet today and have them euthanized. She feels like she might have had a fever last night. She had her neighbor take her to the ER last night due to worsening pain. Date of Admission Sep 22, 2019 at 21:20 Date Seen by a Provider: Sep 23, 2019 Time Seen by a Provider: 07:55 I consulted on this patient on 09/23/19 10:42 Attending Physician Mayuri Muñiz MD Admitting Physician Mayuri Muñiz MD Consult Allergies and Home Medications Allergies Coded Allergies: MELISA Inhibitors (Unverified Allergy, Unknown, 03/31/10) Sulfa (Sulfonamide Antibiotics) (Unverified Allergy, Unknown, 03/31/10) Home Medications Citalopram Hydrobromide 20 Mg Tablet, 0.5 EACH PO BID, (Reported) Diltiazem Hcl 120 Mg Cap.sr.24h, 120 MG PO BID, (Reported) Estradiol 0.5 Mg Tablet, 1 MG PO DAILY, (Reported) Furosemide 40 Mg Tablet, 1 EACH PO DAILY PRN for swelling, (Reported) Levothyroxine Sodium 50 Mcg Tablet, 50 MCG PO SUNDAY AND SUNDAY, (Reported) Levothyroxine Sodium 75 Mcg Tablet, 75 MCG PO ----, (Reported) Metoprolol Tartrate 25 Mg Tablet, 25 MG PO BID, (Reported) Omeprazole 40 Mg Capsule.dr, 40 MG PO DAILY, (Reported) Potassium Chloride 10 Meq Tablet.sa, 10 MEQ PO DAILY PRN for WITH LASIX, (Reported) Spironolactone 25 Mg Tablet, 25 MG PO DAILY, (Reported) Patient Home Medication List Home Medication List Reviewed: Yes Past Jdaxwwz-Npnqql-Hlpmft Hx Patient Social History Recent Foreign Travel: No Contact w/other who traveled: No Recent Hopitalizations: No Recent Infectious Disease Expo: No Immunizations Up To Date Date of Pneumonia Vaccine: Mar 26, 2008 Surgeries Yes (EXP. LAP AND TOTAL ABD. HYST.) Respiratory Yes Cardiovascular Yes Neurological No Reproductive System Hx Reproductive Disorders: Yes Gastrointestinal Yes (GERDS DISEASE) Musculoskeletal Yes (RIGHT KNEE PAIN) Endocrine History of Endocrine Disorders: Yes Psychosocial History of Psychiatric Problem: Yes Blood Transfusions History of Blood Disorders: No Review of Systems Review of Systems General: No Chills, No Night Sweats HEENT: No Head Aches Pulmonary: No Dyspnea, No Cough Cardiovascular: No: Chest Pain, Palpitations Gastrointestinal: Nausea, Vomiting Genitourinary: No Dysuria, No Frequency Musculoskeletal: arm pain, leg pain (left leg pain, swelling, warmth.); No: neck pain, shoulder pain Neurological: No: Weakness All Other Systems Reviewed All Other Systems Reviewed: Yes Physical Exam Vital Signs Vital Signs - First Documented 09/22/19 09/22/19 20:58 20:59 Temp 37.3 Pulse 78 Resp 18 B/P (MAP) 148/60 (89) Pulse Ox 98 O2 Delivery Room Air Capillary Refill : Less Than 3 Seconds Height, Weight, BMI Height: '" Weight: lbs. oz. kg; 24.41 BMI Method:Stated General Appearance: Mild Distress HEENT: PERRL/EOMI Neck: Non Tender, Supple Respiratory: Chest Non Tender, Lungs Clear, Normal Breath Sounds, No Accessory Muscle Use, No Respiratory Distress Cardiovascular: Regular Rate, Rhythm Gastrointestinal: Normal Bowel Sounds, Non Tender, Soft Rectal: Deferred Extremity: Inflammation (swelling, erythema, slightly warm- bite paez noted- consistent with cat on her left leg- open sore.), Other (arms with skin tears from cat bites. does not look secondarily infection.) Neurologic/Psychiatric: Alert, Oriented x3 Skin: Normal Color, Warm/Dry (besides as above) Assessment/Plan Assessment/Plan Admission Dx left leg cellulitis Admission Status: Inpatient Order (span 2 midnights) Reason for Inpatient Admission: rapidly progressing cellulitis of left leg- likely to become septic- needing iv antibiotics for at least 2 days. Assessment and Plan continue unasyn for 2 days- may switch to augmentin if left leg continues to improve tomorrow. -holding on rabies vaccine/Immunoglobulin- discussed with patient- shared decision making utilized. Problems: (1) Hypothyroidism Assessment & Plan: 75mcg on Sun,Mon,Wed,Fri,Sat 50mcg on Sun, (2) HTN (hypertension) Assessment & Plan: holding home medications for now as her blood pressure is low normal. (3) Cellulitis of left lower extremity (4) Cat bite Qualifiers: Qualified Codes: W55.01XD - Bitten by cat, subsequent encounter Clinical Quality Measures DVT/VTE Risk/Contraindication: Risk Factor Score Per Nursin RFS Level Per Nursing on Admit: 4+=Very High Other: WOUNDS TO LEGS KYLE ZARAGOZA MD Sep 23, 2019 10:42
[2019-09-23 12:00] VITALS: BP 101/71
[2019-09-23] MEDS ORDERED: LEVO50TA6 PO (14:42)
[2019-09-23] MEDS ORDERED: LEVO75TA6 PO (14:42)
[2019-09-23] MEDS ORDERED: METO-333 PO (14:42)
[2019-09-23] MEDS ORDERED: SPIR25TA5 PO (14:42)
[2019-09-23 16:10] VITALS: BP 101/49
--- NOTE | 2019-09-23 17:15 | NUR ---
DR ZARAGOZA NOTIFIED TO ORDER HOME MEDS
[2019-09-23 20:46] VITALS: BP 107/61
[2019-09-24] VITALS (7 sets, daily range): BP systolic 105–135; BP diastolic 53–77
[2019-09-24] MEDS: AMPICILLIN/SULBACTAM 3 GM/NS 100 ML IVPB IV SCH ×6 (06:07→22:00)
[2019-09-24] MEDS ORDERED: LEVOTHYROXINE 75 MCG (LEVOTHROID) TABLET PO NR (07:00)
--- NOTE | 2019-09-24 08:22 | Progress Note ---
Subjective Subjective Date Seen by Provider: Sep 24, 2019 Time Seen by Provider: 08:15 PT REPORTS THAT HER LEG FEELS PRETTY SORE TODAY. SHE STATES THAT HER PAIN IS MORE INTENSE IN ONE OF THE BITE SITES COMPARED TO YESTERDAY. SHE NOTES THAT THE WARMTH HAS IMPROVED AND SHE HAS A LITTLE LESS PAIN OVERALL, EXCEPT FOR THE ONE SITE ON HER LEFT LOWER LEG. Review of Systems General: No Chills, No Night Sweats, No Fatigue HEENT: No Head Aches Pulmonary: No Dyspnea, No Cough Cardiovascular: No: Chest Pain, Palpitations Gastrointestinal: No: Nausea, Vomiting Genitourinary: No Dysuria, No Frequency Musculoskeletal: arm pain, leg pain (left leg pain, swelling, warmth.); No: neck pain, shoulder pain Neurological: No: Weakness All Other Systems Reviewed All Other Systems Reviewed: Yes Objective Exam Vital Signs Vital Signs - First Documented 09/22/19 09/22/19 20:58 20:59 Temp 37.3 Pulse 78 Resp 18 B/P (MAP) 148/60 (89) Pulse Ox 98 O2 Delivery Room Air Capillary Refill : Less Than 3 Seconds General Appearance: No Apparent Distress, WD/WN HEENT: PERRL/EOMI Neck: Non Tender, Supple Respiratory: Chest Non Tender, Lungs Clear, Normal Breath Sounds, No Accessory Muscle Use, No Respiratory Distress Cardiovascular: Regular Rate, Rhythm Gastrointestinal: Normal Bowel Sounds, Non Tender, Soft Rectal: Deferred Extremity: Inflammation (TENDERNESS AND ERYTHEMA WITH HEALING LACERATION AND PUNCTURE SITES ON LATERAL LEFT LOWER LEG, ERYTHEMA OUTSIDE OF PREVIOUSLY DRAWN LINE), Other (SCATTERED SKIN TEARS ON ARMS) Neurologic/Psychiatric: Alert, Oriented x3, No Motor/Sensory Deficits, exterminator helper II- XII Norm as Tested Skin: Normal Color, Warm/Dry (besides as above) Results Lab Microbiology 09/22/19 Blood Culture - Preliminary, Resulted No growth 09/22/19 Gram Stain - Final, Resulted 09/22/19 Wound Culture - Preliminary, Resulted Culture In Progress Assessment/Plan Assessment/Plan Admission Dx CELLULITIS CAT BITES DEPRESSION HYPOTHYROIDISM CELLULITIS SECONDARY TO CAT BITES/SCRATCHES - PT ON IV UNASYN - INFECTION APPEARS TO BE SLIGHTLY WORSE TODAY COMPARED TO LINES DRAWN FROM YESTERDAY - WHITE COUNT ELEVATED FROM 21 TO 26, MONITOR LABS TOMORROW DEPRESSION - ON CITALOPRAM, CONTINUE HOME REGIMEN HYPOTHYROIDISM - RESUME HOME REGIMEN SOCIAL ISSUES - PTS SPOUSE RECENTLY - SHE IS WANTING TO MAKE SURE THAT HER DPOA PAPERWORK IS UP TODAY - I HAVE ASKED CARDIOVASCULAR LAB DIRECTOR TO TALK TO PATIENT ABOUT HER NEEDS FOR UPDATED DPOA PAPERWORK AND SEE IF THEY CAN ASSIST HER IN THIS NEED FOR UPDATED PAPERWORK. DVT PROPHYLAXIS WITH LOVENOX GI PROPHYLAXIS WITH PEPCID Problems: (1) Hypothyroidism Assessment & Plan: 75mcg on Sun,Mon,Wed,Fri,Sat 50mcg on Sun, (2) HTN (hypertension) Assessment & Plan: holding home medications for now as her blood pressure is low normal. (3) Cellulitis of left lower extremity (4) Cat bite Qualifiers: Qualified Codes: W55.01XD - Bitten by cat, subsequent encounter Clinical Quality Measures DVT/VTE Risk/Contraindication: Risk Factor Score Per Nursin RFS Level Per Nursing on Admit: 4+=Very High Other: WOUNDS TO LEGS ROBIN MARTIN MD Sep 24, 2019 08:22
[2019-09-24] MEDS ORDERED: DILT-27 PO (09:27)
[2019-09-24] MEDS ORDERED: OMEP40CA27 PO (09:27)
[2019-09-24] MEDS ORDERED: ACET325C7 PO (09:27)
[2019-09-24] MEDS ORDERED: PROP15DR OU (09:27)
[2019-09-24] MEDS ORDERED: CITA20TA9 PO (09:27)
[2019-09-24] MEDS ORDERED: POTA10TA PO (09:27)
[2019-09-24] MEDS ORDERED: MULT-1029 PO (09:27)
[2019-09-24] MEDS ORDERED: ESTR1TAB24 PO (09:27)
[2019-09-24] MEDS ORDERED: FURO40TA4 PO (09:27)
--- NOTE | 2019-09-24 10:51 | NUR ---
SPOKE WITH THE PT AND WENT THRU THE EXT MED HISTORY TO COMPLETE THE MED REC PT WANTED ME TO CONTACT HER PHARMACY AND PCP TO GET THE MED LIST- I TOLD HER I COULD SEE WHAT [facility] HAD FILLED RECENTLY AND ONCE I SAID THE NAMES OF MEDICATIONS LISTED ON THE EXT MED HISTORY THE PT WAS ABLE TO TELL ME HOW/WHEN SHE TAKES EACH CITALOPRAM 20MG- DIRECTIONS SHOW 1 TAB BID HOWEVER THE PT SAYS SHE IS ONLY TAKING TAB BID ALL OTHER MEDICATIONS DIRECTIONS MATCHED INFORMATION FROM THE PT OTC MEDS: [employer] TYLENOL SYSTANE EYE DROPS
[2019-09-24] MEDS: ENOXAPARIN 40 MG/0.4 ML (LOVENOX) SYR SC SCH (12:12)
[2019-09-24] MEDS: LACTOBACILLUS ACIDOPHILUS (PROBIOTIC) CAPSULE PO SCH ×2 (14:19→18:53)
--- NOTE | 2019-09-24 15:21 | NUR ---
CM/SS visited with the patient for discharge planning. The patients physician asked this sw to work on a DPOA with the patient. CM/SS visited with the patient and discussed in length about the Durable Power of Cab Driver. The patient reports that she is currently working of absolving her trustee due to complicated family dynamics through her health care attorney. The patient informed this ss that she has a DPOA but she would like to get it updated/changed. CM/SS informed her that the updated one will cancel out the old one. She verbalized understanding. CM/SS listed her two sons. CM/SS had JOHN Heaton as a second witness to patient signing. A copy was placed in the medical chart. A folder was given to the patient with multiple copies of DPOA, the Original, and education regarding Advanced Directives. The patient reports that she did not want to do a Living Will at this time until she is able to talk with her two sons. CM/SS will continue to follow patient.
--- NOTE | 2019-09-24 15:34 | NUR ---
Pastoral care visit.
--- NOTE | 2019-09-24 18:53 | NUR ---
refused lacto stating " it increased her bowel movements and made her dizzy"
[2019-09-24] MEDS: FAMOTIDINE 20 MG (PEPCID) TABLET PO SCH (21:54)
[2019-09-25 00:42] VITALS: BP 129/72
[2019-09-25 03:33] VITALS: BP 150/78
[2019-09-25] MEDS: AMPICILLIN/SULBACTAM 3 GM/NS 100 ML IVPB IV SCH ×4 (05:29→12:09)
[2019-09-25 05:54] LABS: HEMOGLOBIN 12.5 G/DL (11.5-16.0); MEAN PLATELET VOLUME 9.4 FL (7.4-10.4); RED CELL DISTRIBUTION WIDTH 13.5 % (10.0-14.5); WHITE BLOOD COUNT 6.7 10^3/uL (4.3-11.0)
[2019-09-25 06:13] LABS: ALANINE AMINOTRANSFERASE 11 U/L (0-55); ALBUMIN 3.5 GM/DL (3.2-4.5); ALKALINE PHOSPHATASE 59 U/L (40-136); BILIRUBIN,TOTAL 0.4 MG/DL (0.1-1.0); BUN/CREATININE RATIO 24; CALCIUM 8.8 MG/DL (8.5-10.1); CARBON DIOXIDE 20 MMOL/L (21-32); CHLORIDE 109 MMOL/L (98-107); CREATININE SERUM 0.83 MG/DL (0.60-1.30); GFR ESTIMATED > 60; GLUCOSE 93 MG/DL (70-105); POTASSIUM 4.3 MMOL/L (3.6-5.0); SODIUM 140 MMOL/L (135-145)
--- NOTE | 2019-09-25 07:25 | Progress Note ---
Subjective Subjective Date Seen by Provider: Sep 25, 2019 Time Seen by Provider: 07:23 Pt states she has been feeling some abdominal pressure that may be gas. She did not want to take her probiotic last night with dinner because she thinks it makes her have to go to the bathroom more. She had several stools yesterday that were slightly looser than her normal stools. She reports sleeping much deeper since taking the Citalopram at night in the hospital and was worried she would not wake up in time to use the restroom. Her leg is bar gauger and lubricator tender around the puncture sites, but has decreased in redness since she first came to the hospital. Review of Systems General: No Chills, No Night Sweats, No Fatigue HEENT: Head Aches (SLIGHT HEADACHE WHEN SHE WAKES UP ) Pulmonary: No Dyspnea, No Cough Cardiovascular: No: Chest Pain, Palpitations Gastrointestinal: Abdominal Pain (MINOR BLOATING PAIN); No: Nausea, Vomiting, Diarrhea, Constipation Genitourinary: No Dysuria, No Frequency Musculoskeletal: arm pain, leg pain (left leg pain, swelling, warmth.); No: neck pain, shoulder pain Neurological: No: Weakness All Other Systems Reviewed All Other Systems Reviewed: Yes Objective Exam Vital Signs Vital Signs - First Documented 09/22/19 09/22/19 20:58 20:59 Temp 37.3 Pulse 78 Resp 18 B/P (MAP) 148/60 (89) Pulse Ox 98 O2 Delivery Room Air Capillary Refill : Less Than 3 Seconds General Appearance: No Apparent Distress, WD/WN HEENT: PERRL/EOMI Neck: Non Tender, Supple Respiratory: Chest Non Tender, Lungs Clear, Normal Breath Sounds, No Accessory Muscle Use, No Respiratory Distress Cardiovascular: Regular Rate, Rhythm Gastrointestinal: Normal Bowel Sounds, Non Tender, Soft Rectal: Deferred Extremity: Inflammation (TENDERNESS AND ERYTHEMA WITH HEALING LACERATION AND PUNCTURE SITES ON LATERAL LEFT LOWER LEG, ), Other (SCATTERED SKIN TEARS ON ARMS) Neurologic/Psychiatric: Alert, Oriented x3, No Motor/Sensory Deficits, technical maintenance technician II- XII Norm as Tested Skin: Normal Color, Warm/Dry (besides as above) Results Lab Laboratory Tests 09/25/19 05:14: White Blood Count 6.7, Red Blood Count 4.18L, Hemoglobin 12.5, Hematocrit 38, Mean Corpuscular Volume 92, Mean Corpuscular Hemoglobin 30, Mean Corpuscular Hemoglobin Concent 33, Red Cell Distribution Width 13.5, Platelet Count 200, Mean Platelet Volume 9.4, Sodium Level 140, Potassium Level 4.3, Chloride Level 109H, Carbon Dioxide Level 20L, Anion Gap 11, Blood Urea Nitrogen 20H, Creatinine 0.83, Estimat Glomerular Filtration Rate > 60, BUN/Creatinine Ratio 24, Glucose Level 93, Calcium Level 8.8, Corrected Calcium 9.2, Total Bilirubin 0.4, Aspartate Amino Transf (AST/SGOT) 16, Alanine Aminotransferase (ALT/SGPT) 11, Alkaline Phosphatase 59, Total Protein 6.0L, Albumin 3.5 Microbiology 09/22/19 Blood Culture - Preliminary, Resulted No growth 09/22/19 Gram Stain - Final, Resulted 09/22/19 Wound Culture - Preliminary, Resulted Staphylococcus epidermidis Usual Mixed Skin Kajal Assessment/Plan Assessment/Plan Assessment and Plan CELLULITIS SECONDARY TO CAT BITES/SCRATCHES - PT ON IV UNASYN - INFECTION APPEARS TO BE BETTER TO DAY WITH ERYTHEMA LESS PROMINENT - WHITE COUNT DECREASED TO NORMAL RANGE FROM 26.8 YESTERDAY TO 6.7 THIS MORNING, -CONSIDER SWITCHING TO ORAL AUGMENTIN IN PREPARATION FOR DISCHARGE DEPRESSION - ON CITALOPRAM, CONTINUE HOME REGIMEN HYPOTHYROIDISM - RESUME HOME REGIMEN SOCIAL ISSUES - PTS SPOUSE RECENTLY - SHE SPOKE WITH [employer]ORAL SERVICES YESTERDAY AND WAS ABLE TO UPDATE HER DPOA TO INCLUDE HER SONS DVT PROPHYLAXIS WITH LOVENOX GI PROPHYLAXIS WITH PEPCID -ABDOMINAL DISCOMFORT, PT REFUSED EVENING DOSE OF PROBIOTIC, -MONITOR FOR CHANGES, COUNSELED PT ON IMPORTANCE OF PROBIOTICS ESPECIALLY WITH INITIATION OF ORAL ANTIBIOTICS Problems: (1) Hypothyroidism Assessment & Plan: 75mcg on Sun,Mon,Wed,Fri,Sat 50mcg on Sun, (2) HTN (hypertension) Assessment & Plan: holding home medications for now as her blood pressure is low normal. (3) Cellulitis of left lower extremity (4) Cat bite Qualifiers: Qualified Codes: W55.01XD - Bitten by cat, subsequent encounter Clinical Quality Measures DVT/VTE Risk/Contraindication: Risk Factor Score Per Nursin RFS Level Per Nursing on Admit: 4+=Very High Other: WOUNDS TO LEGS Supervisory-Addendum Brief Verification & Attestation Participated in pt care: history, MDM, physical Personally performed: exam, history, MDM Care discussed with: Medical Student Procedures: n/a PATIENT IS SIGNIFICANTLY IMPROVED, WHITE COUNT HAS IMPROVED AND PATIENT'S LEG ERYTHEMA HAS IMPROVED SIGNIFICANTLY WELL. SEE DC SUMMARY [facility] Sep 25, 2019 07:25 ROBIN MARTIN MD Sep 25, 2019 09:16
[2019-09-25 07:54] VITALS: BP 130/57
[2019-09-25] MEDS: ENOXAPARIN 40 MG/0.4 ML (LOVENOX) SYR SC SCH (08:59)
[2019-09-25] MEDS: LACTOBACILLUS ACIDOPHILUS (PROBIOTIC) CAPSULE PO SCH ×2 (08:59→12:10)
[2019-09-25] MEDS: FAMOTIDINE 20 MG (PEPCID) TABLET PO SCH (09:00)
--- NOTE | 2019-09-25 09:00 | NUR ---
PATIENT REFUSED MEDICATION STATED WOULD LIKE TO TAKE HER OWN MEDS WHEN SHE GOT HOME AGREED TO TAKE LOVENOX AND ANTIBIOTIC
[2019-09-25] MEDS ORDERED: AMOX-358 PO (09:02)
[2019-09-25] MEDS ORDERED: LACT1CAP87 PO (09:02)
--- NOTE | 2019-09-25 09:03 | Discharge Inst-Simple/Standard ---
Discharge Inst-Standard Reconcile Patient Problems Problems Reviewed?: Yes Discharge Medications New, Converted or Re-Newed RX: Transmitted to Pharmacy Patient Instructions/Follow Up Plan of Care/Instructions/FU: RETURN TO CLINIC IN 1 WEEK FROM DISCHARGE Activity as Tolerated: Yes Discharge Diet: Regular Diet Return to The Hospital For: ANY CONCERN FOR WORSENING INFECTION, CHEST PAIN, SHORTNESS OF BREATH OR LIFETHREATENING ILLNESS Planned Outpatient Orders/Ref. Pneu Vac Indicated: Yes Medication List: Active Scripts Active Acidophilus Lactobacilli (Lactobacillus Acidophilus) 1 Each Capsule 1 Each PO BID Augmentin 875-125 Tablet (Amoxicillin/Potassium Clav) 1 Each Tablet 1 Each PO BID Reported Systane 0.3-0.4% Eye Drops (Propylene Glycol/Peg 400) 15 Ml Drops 2 Drops OU PRN PRN Tylenol (Acetaminophen) 325 Mg Capsule 650 Mg PO Q8H PRN Centrum Silver Tablet (Multivit-Min/FA/Lycopene/Lut) 1 Each Tablet 1 Each PO DAILY Estradiol Tablet (Estradiol) 1 Mg Tablet 1 Mg PO DAILY K-Tab ER (Potassium Chloride) 10 Meq Tablet.er 10 Meq PO DAILY PRN TAKE POTASSIUM WITH FUROSEMIDE Omeprazole 40 Mg Capsule.dr 40 Mg PO DAILY Diltiazem 24Hr ER (Diltiazem HCl) 120 Mg Cap.er.24h 120 Mg PO BID Furosemide 40 Mg Tablet 40 Mg PO DAILY PRN TAKE FUROSEMIDE WITH POTASSIUM Citalopram HBr (Citalopram Hydrobromide) 20 Mg Tablet 10 Mg PO BID TAKES OF A 20MG TWICE DAILY Spironolactone 25 Mg Tablet 25 Mg PO DAILY Levothyroxine Sodium 75 Mcg Tablet 75 Mcg PO BARB,JERRICA,WE,FR,SAT Levothyroxine Sodium 50 Mcg Tablet 50 Mcg PO MALACHI SIMMONS Metoprolol Tartrate 25 Mg Tablet 25 Mg PO BID Lab results: Laboratory Tests Test 09/25/19 05:14 Range/Units White Blood Count 6.7 4.3-11.0 10^3/uL Red Blood Count 4.18 L 4.35-5.85 10^6/uL Hemoglobin 12.5 11.5-16.0 G/DL Hematocrit 38 35-52 % Mean Corpuscular Volume 92 80-99 FL Mean Corpuscular Hemoglobin 30 25-34 PG Mean Corpuscular Hemoglobin Concent 33 32-36 G/DL Red Cell Distribution Width 13.5 10.0-14.5 % Platelet Count 200 130-400 10^3/uL Mean Platelet Volume 9.4 7.4-10.4 FL Sodium Level 140 135-145 MMOL/L Potassium Level 4.3 3.6-5.0 MMOL/L Chloride Level 109 H 98-107 MMOL/L Carbon Dioxide Level 20 L 21-32 MMOL/L Anion Gap 11 5-14 MMOL/L Blood Urea Nitrogen 20 H 7-18 MG/DL Creatinine 0.83 0.60-1.30 MG/DL Estimat Glomerular Filtration Rate > 60 BUN/Creatinine Ratio 24 Glucose Level 93 70-105 MG/DL Calcium Level 8.8 8.5-10.1 MG/DL Corrected Calcium 9.2 8.5-10.1 MG/DL Total Bilirubin 0.4 0.1-1.0 MG/DL Aspartate Amino Transf (AST/SGOT) 16 5-34 U/L Alanine Aminotransferase (ALT/SGPT) 11 0-55 U/L Alkaline Phosphatase 59 40-136 U/L Total Protein 6.0 L 6.4-8.2 GM/DL Albumin 3.5 3.2-4.5 GM/DL My orders: Orders - ROBIN MARTIN MD Cbc No Diff (09/25/19 05:00) Comprehensive Metabolic Panel (09/25/19 05:00) Lactobacillus Acidophilus Cap (Acidophil (09/24/19 13:00) Enoxaparin Injection (Lovenox Injection) (09/24/19 09:30) Famotidine Tablet (Pepcid Tablet) (09/24/19 21:00) Attending Discharge Inpt/Inobs (09/25/19 08:59) ROBIN MARTIN MD Sep 25, 2019 09:03
--- NOTE | 2019-09-25 09:12 | Discharge Summary ---
Diagnosis/Chief Complaint Date of Admission Sep 22, 2019 at 21:20 Date of Discharge Discharge Date: Sep 25, 2019 Discharge Time: 1000 Discharge Summary Discharge Physical Examination Allergies: Coded Allergies: MELISA Inhibitors (Unverified Allergy, Unknown, 03/31/10) Sulfa (Sulfonamide Antibiotics) (Unverified Allergy, Unknown, 03/31/10) Vitals & I&Os Vital Signs Date Time Temp Pulse Resp B/P (MAP) Pulse Ox O2 Delivery O2 Flow Rate FiO2 09/25/19 08:32 Room Air 09/25/19 07:54 36.6 78 18 130/57 (81) 97 Hospital Course Pending Labs Laboratory Tests 09/25/19 05:14: White Blood Count 6.7, Red Blood Count 4.18, Hemoglobin 12.5, Hematocrit 38, Mean Corpuscular Volume 92, Mean Corpuscular Hemoglobin 30, Mean Corpuscular Hemoglobin Concent 33, Red Cell Distribution Width 13.5, Platelet Count 200, Mean Platelet Volume 9.4, Sodium Level 140, Potassium Level 4.3, Chloride Level 109, Carbon Dioxide Level 20, Anion Gap 11, Blood Urea Nitrogen 20, Creatinine 0.83, Estimat Glomerular Filtration Rate > 60, BUN/Creatinine Ratio 24, Glucose Level 93, Calcium Level 8.8, Corrected Calcium 9.2, Total Bilirubin 0.4, Aspartate Amino Transf (AST/SGOT) 16, Alanine Aminotransferase (ALT/SGPT) 11, Alkaline Phosphatase 59, Total Protein 6.0, Albumin 3.5 Discharge Instructions to patient/family Please see electronic discharge instructions given to patient. Discharge Medications Reviewed and agree with Discharge Medication list on patient's Discharge Instruction sheet Clinical Quality Measures DVT/VTE Risk/Contraindication: Risk Factor Score Per Nursin RFS Level Per Nursing on Admit: 4+=Very High Other: WOUNDS TO LEGS ROBIN MARTIN MD Sep 25, 2019 09:12
--- NOTE | 2019-09-25 09:19 | Discharge Summary ---
Diagnosis/Chief Complaint Date of Admission Sep 22, 2019 at 21:20 Date of Discharge Discharge Date: Sep 25, 2019 Discharge Time: 1000 Admission Diagnosis Admission Diagnosis CELLULITIS CAT BITES DEPRESSION HYPOTHYROIDISM Discharge Diagnosis CELLULITIS CAT BITES DEPRESSION HYPOTHYROIDISM Reason Hospital Visit 79 yo F admitted last night for left lower leg cellulitis secondary to her cats biting her. Her 2 cats have changed their attitudes since her in June. One cat lives inside, the other goes outside during the day. Now her left leg is warm, hot, swollen, red, and really painful. She was started on unasyn last night and this AM her pain is significantly better, swelling improved and she felt good enough to eat. The cats have had rabies vaccines but not recently. She was actually going to take them to the vet today and have them euthanized. She feels like she might have had a fever last night. She had her neighbor take her to the ER last night due to worsening pain. Discharge Summary Discharge Physical Examination Allergies: Coded Allergies: MELISA Inhibitors (Unverified Allergy, Unknown, 03/31/10) Sulfa (Sulfonamide Antibiotics) (Unverified Allergy, Unknown, 03/31/10) Vitals & I&Os Vital Signs Date Time Temp Pulse Resp B/P (MAP) Pulse Ox O2 Delivery O2 Flow Rate FiO2 09/25/19 08:32 Room Air 09/25/19 07:54 36.6 78 18 130/57 (81) 97 Hospital Course Was the Problem List Reviewed?: Yes CELLULITIS CAT BITES DEPRESSION HYPOTHYROIDISM CELLULITIS SECONDARY TO CAT BITES/SCRATCHES - PT ON IV UNASYN - INFECTION APPEARS TO BE SLIGHTLY WORSE TODAY COMPARED TO LINES DRAWN FROM YESTERDAY - WHITE COUNT ELEVATED FROM 21 TO 26, MONITOR LABS TOMORROW DEPRESSION - ON CITALOPRAM, CONTINUE HOME REGIMEN HYPOTHYROIDISM - RESUMED HOME REGIMEN SOCIAL ISSUES - PTS SPOUSE RECENTLY - SHE IS WANTING TO MAKE SURE THAT HER DPOA PAPERWORK IS UP TODAY - I HAVE ASKED [employer] TO TALK TO PATIENT ABOUT HER NEEDS FOR UPDATED DPOA PAPERWORK AND SEE IF THEY CAN ASSIST HER IN THIS NEED FOR UPDATED PAPERWORK. DVT PROPHYLAXIS WITH LOVENOX GI PROPHYLAXIS WITH PEPCID ON DISCHARGE HER WHITE COUNT IMPROVED DOWN TO 6, BLOOD PRESSURE WAS STABLE, AND HER CELLULITIS HAD IMPROVED DRASTICALLY WELL - SHE IS TO BE DISCHARGED ON ORAL AUGMENTIN FOR ANOTHER 5 DAYS AND FOLLOW UP IN THE OFFICE IN A WEEK FROM DISCHARGE. Pending Labs Laboratory Tests 09/25/19 05:14: White Blood Count 6.7, Red Blood Count 4.18, Hemoglobin 12.5, Hematocrit 38, Mean Corpuscular Volume 92, Mean Corpuscular Hemoglobin 30, Mean Corpuscular Hemoglobin Concent 33, Red Cell Distribution Width 13.5, Platelet Count 200, Mean Platelet Volume 9.4, Sodium Level 140, Potassium Level 4.3, Chloride Level 109, Carbon Dioxide Level 20, Anion Gap 11, Blood Urea Nitrogen 20, Creatinine 0.83, Estimat Glomerular Filtration Rate > 60, BUN/Creatinine Ratio 24, Glucose Level 93, Calcium Level 8.8, Corrected Calcium 9.2, Total Bilirubin 0.4, Aspartate Amino Transf (AST/SGOT) 16, Alanine Aminotransferase (ALT/SGPT) 11, Alkaline Phosphatase 59, Total Protein 6.0, Albumin 3.5 Discharge Condition at discharge IMPROVED Instructions to patient/family Please see electronic discharge instructions given to patient. Discharge Medications Reviewed and agree with Discharge Medication list on patient's Discharge Instruction sheet Clinical Quality Measures DVT/VTE Risk/Contraindication: Risk Factor Score Per Nursin RFS Level Per Nursing on Admit: 4+=Very High Other: WOUNDS TO LEGS ROBIN MARTIN MD Sep 25, 2019 09:19
[2019-09-25 11:14] VITALS: BP 139/56
--- NOTE | 2019-09-25 12:54 | NUR ---
FINESSE/CARMENCITA follow up. The patient is discharging home today. She reports that she spoke to her two sons last night about being named her agents on the DPOA paperwork. FINESSE/SS discussed in length yesterday about a living will and specific wishes. She stated that she spoke with both of them about her wishes on the phone and plans to sit down with them and have it written out. The patient reports that she does not have any further needs at this time. FINESSE/SS faxed a copy of the DPOA to Dr. Stevenson office the patients primary care.
[2019-09-25 14:49] VITALS: BP 139/56
== END 2019-09-25 14:53 | disposition home or self-care (01) | DRG 603 ==
LOC: EDUNIT# 20:48 → ER 20:49 → 4TH 21:20
PROVIDERS: ADMIT Family Medicine; ATTEND Family Medicine
DX: L03.116 Cellulitis of left lower limb (principal); S81.852A Open bite, left lower leg, initial encounter; S51.851A Open bite of right forearm, initial encounter; I10 Essential (primary) hypertension; E03.9 Hypothyroidism, unspecified; F32.9 Major depressive disorder, single episode, unspecified; K21.9 Gastro-esophageal reflux disease without esophagitis; W55.01XA Bitten by cat, initial encounter; Z88.2 Allergy status to sulfonamides; Z88.8 Allergy status to other drugs, medicaments and biological substances
CPT/HCPCS: 36415; 71045; 80053; 83605; 85007; 85025; 85027; 85610; 85730; 87040; 87070; 87077; 87205

== ENCOUNTER → 2019-12-25 | Outpatient (CLI) | payer MEDICARE ==
[~2019-12-25] MED LIST changes: +ACET325C7 PO; +AMOX-358 PO; +CITA20TA9 PO; +DILT-27 PO; +ESTR1TAB24 PO; +LACT1CAP87 PO; +LEVO50TA6 PO; +LEVO75TA6 PO; +METO-333 PO; +MULT-1029 PO; +OMEP40CA27 PO; +POTA10TA PO; +PROP15DR OU; +SPIR25TA5 PO
--- NOTE | 2019-12-25 13:39 | Diagnostic Imaging Report ---
INDICATION: Routine screening. Comparison is made with prior mammogram 04/27/2017 and 02/10/2016. 2-D and 3-D bilateral screening mammography was performed with CAD. Both breasts show marked parenchymal heterogeneity and increased density, limiting the sensitivity of mammography. There are numerous calcifications throughout both breasts. There has been some increasing coarse calcifications in the upper right breast at posterior depth best seen on MLO view since prior study. However these appear to be fairly benign. Calcifications on the left appear to be fairly stable. There are biopsy clips in bilateral breasts. No dominant mass is identified. Axillae are unremarkable. IMPRESSION: BI-RADS Category 2 No mammographic features suspicious for malignancy are identified. ACR BI-RADS Category 2: Benign findings. Result letter will be mailed to the patient. Note: At least 10% of breast cancer is not imaged by mammography. Dictated by: Dictated on workstation # [id number]
== END ==
LOC: RAD 10:48
PROVIDERS: ATTEND Nurse Practitioner Family
DX: Z12.31 Encounter for screening mammogram for malignant neoplasm of breast (principal)
CPT/HCPCS: 77063; 77067

== ENCOUNTER → 2020-06-22 | Outpatient (CLI) | payer MEDICARE ==
--- NOTE | 2020-06-22 18:15 | Diagnostic Imaging Report ---
EXAMINATION: Bilateral knees at 1:31 p.m. INDICATION: Knee pain. Three views of each knee joint were obtained. There is no fracture, dislocation or acute bony abnormality evident. The degenerative disease involving the medial compartment of the left knee joint seen on the prior exam of 12/17/2011 has progressed. There is now moderately severe narrowing of the medial compartment. The lateral compartment remains well maintained but there is also mild/moderate narrowing of the patellofemoral space. This has developed since the prior exam as well. There are similar but not quite as severe degenerative changes involving the medial compartment of the right knee joint. The lateral compartment is fairly well-maintained. Mild/moderate degenerative disease of the patellofemoral space on the right is also noted. The soft tissues are unremarkable. IMPRESSION: 1. There is no evidence of an acute bony abnormality. 2. There is degenerative disease involving both knee joints with the medial compartments the most severely affected. The degenerative changes involving the left knee have progressed since the prior exam. Dictated by: Dictated on workstation # [id number]
--- NOTE | 2020-06-22 18:18 | Diagnostic Imaging Report ---
EXAMINATION: Lumbar spine at 1:30 p.m. INDICATION: Back pain. Three views were obtained. There are no prior studies available for comparison. The lateral view shows a mild (10-20%) compression deformity of the superior endplate of L1. I suspect this injury is long-standing in nature. If previous exams are available they would be helpful for comparison. If there are no prior studies and further imaging is desired, then MRI should be obtained. The other vertebral body heights are within normal limits. The alignment of the vertebral bodies is generally within normal limits as well. There is mild narrowing of the disc spaces at L4-L5 and L5-S1. The other intervertebral disc spaces are fairly well-maintained. There is no sign of a paraspinal mass. There is mild symmetrical sclerosis of the sacroiliac joints. IMPRESSION: 1. The mild compression deformity of the superior endplate of L1 is most likely long-standing in nature. Considerations and recommendations as above. 2. There is no acute bony abnormality noted otherwise. 3. There is degenerative disc and bony disease at L4-L5 and L5-S1. Dictated by: Dictated on workstation # [id number]
== END ==
LOC: RAD 13:07
PROVIDERS: ATTEND Nurse Practitioner Family
DX: M51.36 Other intervertebral disc degeneration, lumbar region (principal); M51.37 Other intervertebral disc degeneration, lumbosacral region; M51.06 Intervertebral disc disorders with myelopathy, lumbar region; M17.0 Bilateral primary osteoarthritis of knee
CPT/HCPCS: 72100

== ENCOUNTER 2021-11-18 00:48 | Emergency (ER) | payer MEDICARE ==
[~2021-11-18 00:48] MED LIST changes: -OMEP40CA27 PO; +OMEP40CA6 PO
[2021-11-18 02:01] VITALS: BP 145/88
--- NOTE | 2021-11-18 05:23 | Diagnostic Imaging Report ---
PROCEDURE: CT head, face, and cervical spine without contrast. TECHNIQUE: Multiple contiguous axial images were obtained through the head, neck, and facial bones without the use of intravenous contrast. Sagittal and coronal reformations through the cervical spine and facial bones were also performed. Auto Exposure Controls were utilized during the CT exam to meet ALARA standards for radiation dose reduction. INDICATION: 81-year-old female injured in fall face forward on concrete, presents with laceration of the bridge of the nose, skin tears, headache, neck pain. COMPARISONS: CT head 05/28/2019. CT head without contrast: FINDINGS: Midline structures are not displaced. Lateral, 3rd, and 4th ventricles are normal in size, shape and anatomic position. There is no mass, mass effect, hydrocephalus or hemorrhage. Marquez-white differentiation is normal. There is no sulcal effacement. There are no abnormal extra-axial fluid collections or hemorrhage. Basilar cisterns appear normal. There is calcific atherosclerosis within the carotid siphons. Sinuses, orbits, and mastoid air cells are normal. Bone windows show no calvarial changes. IMPRESSION: Age-appropriate changes, otherwise unremarkable nonenhanced CT brain. CT facial bones with reconstructions: FINDINGS: Axial images in sagittal and coronal reconstructions of the facial bones demonstrate an intact mandible and maxilla. There is nasal septal deviation to the left. The nasal bones are symmetric. The sinuses are well pneumatized. The osteomeatal complexes are patent. Orbits including both globes, retro-orbital extraconal, conal and intraconal spaces are normal. Zygomatic arches and pterygoid plates are symmetric. Mastoid air cells appear well pneumatized. IMPRESSION: Unremarkable nonenhanced CT facial bones. CT cervical spine with reconstructions: FINDINGS: Axial images in sagittal and coronal reconstructions of the cervical spine demonstrate age appropriate cervical spondylosis. There is mild grade 1 anterolisthesis of C3 on C4. Some anterior bridging osteophytes are present as well as some endplate sclerosis. Some mild multilevel hypertrophic facet changes are present, more prominent in the upper cervical levels. Cervical vertebral bodies otherwise appear reasonably well aligned, vertebral body heights appear reasonably well-maintained. There is some mild atlantoaxial degenerative joint disease. The prevertebral soft tissue as well as the paraspinous soft tissues are unremarkable. Lung apices are clear. Superior mediastinum is unremarkable. There is bilateral carotid bifurcation disease with calcific atherosclerosis. IMPRESSION: 1. Moderate cervical spondylosis. There is mild grade 1 anterolisthesis of C3 on C4. These are all chronic. There is multilevel hypertrophic facet changes most prominent in the upper cervical levels. There is no evidence of acute fracture or acute subluxation seen. 2. Bilateral carotid bifurcation disease. Dictated by: Dictated on workstation # [id number]
--- NOTE | 2021-11-18 05:31 | ED Fall/Injury ---
General Chief Complaint: Trauma-Non Activation Stated Complaint: FALL,LEFT ARM PX,NOSE INJURY,KNEE PAIN Nursing Triage Note: PT FELL FROM STANDING WHILE WALKING. FELL FACE FIRST ONTO CONCRETE. PT DENIES LOC, DENIES THINNER USE. PT HAS LACERATION TO BRIDGE OF NOSE AND SKIN TEAR TO LEFT ARM. BLEEDING IS CONTROLLED AT THIS TIME Source: patient History of Present Illness Date Seen by Provider: Nov 18, 2021 Allergies and Home Medications Allergies Coded Allergies: MELISA Inhibitors (Unverified Allergy, Unknown, 03/31/10) Sulfa (Sulfonamide Antibiotics) (Unverified Allergy, Unknown, 03/31/10) Patient Home Medication List Acetaminophen (Tylenol) 325 Mg Capsule, 650 MG PO Q8H PRN for PAIN-MILD (1-4), (Reported) Entered as Reported by: GRABIEL TRUONG on 09/24/19926 Amoxicillin/Potassium Clav (Augmentin 875-125 Tablet) 1 Each Tablet, 1 EACH PO BID Prescribed by: ROBIN MARTIN on 09/25/19901 Citalopram Hydrobromide (Citalopram HBr) 20 Mg Tablet, 10 MG PO BID, (Reported) Entered as Reported by: GRABIEL TRUONG on 09/24/19926 Diltiazem HCl (Diltiazem 24Hr ER) 120 Mg Cap.er.24h, 120 MG PO BID, (Reported) Entered as Reported by: GRABIEL TRUONG on 09/24/19926 Estradiol (Estradiol Tablet) 1 Mg Tablet, 1 MG PO DAILY, (Reported) Entered as Reported by: GRABIEL TRUONG on 09/24/19926 Furosemide (Furosemide) 40 Mg Tablet, 40 MG PO DAILY PRN for FLUID RETENTION, (Reported) Entered as Reported by: GRABIEL TRUONG on 09/24/19926 Lactobacillus Acidophilus (Acidophilus Lactobacilli) 1 Each Capsule, 1 EACH PO BID Prescribed by: ROBIN MARTIN on 09/25/19901 Levothyroxine Sodium (Levothyroxine Sodium) 50 Mcg Tablet, 50 MCG PO MALACHI SIMMONS, (Reported) Entered as Reported by: GRABIEL CLEMENTE on 09/23/19 1442 Levothyroxine Sodium (Levothyroxine Sodium) 75 Mcg Tablet, 75 MCG PO JERRICA DAY,OLIVIA,FR,SAT, (Reported) Entered as Reported by: GRABIEL CLEMENTE on 09/23/191441 Metoprolol Tartrate (Metoprolol Tartrate) 25 Mg Tablet, 25 MG PO BID, (Reported) Entered as Reported by: GRABIEL CLEMENTE on 09/23/191441 Multivit-Min/FA/Lycopene/Lut (Centrum Silver Tablet) 1 Each Tablet, 1 EACH PO DAILY, (Reported) Entered as Reported by: GRABIEL TRUONG on 09/24/19926 Omeprazole (Omeprazole) 40 Mg Capsule.dr, 40 MG PO DAILY, (Reported) Entered as Reported by: GRABIEL TRUONG on 09/24/19926 Potassium Chloride (K-Tab ER) 10 Meq Tablet.er, 10 MEQ PO DAILY PRN for FLUID RETENTION, (Reported) Entered as Reported by: GRABIEL TRUNOG on 09/24/19926 Propylene Glycol/Peg 400 (Systane 0.3-0.4% Eye Drops) 15 Ml Drops, 2 DROPS OU PRN PRN for DRY EYES, (Reported) Entered as Reported by: GRABIEL TRUONG on 09/24/19926 Spironolactone (Spironolactone) 25 Mg Tablet, 25 MG PO DAILY, (Reported) Entered as Reported by: GRABIEL CLEMENTE on 09/23/191441 Past Zysrngd-Hpqyza-Hjbgmf Hx Patient Social History Tobacco Use?: No Substance use?: No Alcohol Use?: No Pt feels they are or have been: No Immunizations Up To Date Influenza Vaccine Up-to-Date: No; Not Current Past Medical History Surgeries: Yes (EXP. LAP AND TOTAL ABD. HYST.) Respiratory: Yes Cardiac: Yes Neurological: No Reproductive Disorders: Yes Gastrointestinal: Yes (GERDS DISEASE) Musculoskeletal: Yes (RIGHT KNEE PAIN) Endocrine: Yes Psychosocial: Yes Blood Disorders: No Physical Exam Vital Signs Vital Signs - First Documented Capillary Refill : Height, Weight, BMI Height: '" Weight: lbs. oz. kg; 24.41 BMI Method:Stated Progress/Results/Core Measures Results/Orders My Orders Orders - MARC GIBSON DO Cervical Collar (11/18/21 02:27) Ct Head/Face/Cervical Wo (11/18/21 02:27) Monitor-Rhythm Ecg Trace Only (11/18/21 02:27) Chest 1 View, Ap/Pa Only (11/18/21 02:27) Forearm, Left, 2 Views (11/18/21 02:27) Pelvis 1 To 2 Views (11/18/21 02:27) Knee, 3 Views, Bilateral (11/18/21 02:27) Vital Signs/I&O 11/18/21 11/18/21 11/18/21 11/18/21 02:01 02:01 02:58 04:06 Temp 35.7 36.5 Pulse 68 68 79 70 Resp 22 22 18 18 B/P (MAP) 145/88 (107) 145/88 (107) 153/68 152/78 Pulse Ox 98 98 100 98 O2 Delivery Room Air Room Air Room Air Room Air 11/18/21 05:02 Pulse 79 Resp 18 B/P (MAP) 155/72 Pulse Ox 98 O2 Delivery Room Air 2 Blood Pressure Mean: 99 Departure Impression Primary Impression: Fall from standing Additional Impressions: Nasal bone fractures Cervical strain Nasal laceration BILATERAL KNEE CONTUSIONS Contusion of left arm Skin tear of left forearm without complication Closed head injury without loss of consciousness Disposition: 01 HOME, SELF-CARE Condition: Stable Departure-Patient Inst. Decision time for Depature: 05:25 Referrals: ULYSSES BAGLEY MD, HOLLY A MD (PCP/Family) Primary Care Physician Patient Instructions: Cervical Sprain ED, Minor Head Injury, Adult ED, Nose Fracture ED, Preventing Falls ED Add. Discharge Instructions: ICE TO SORE AREAS AT 20 MINUTE INTERVALS DO NOT BLOW OR RUB NOSE, AND TRY TO AVOID SNEEZING LEAVE ALL STERI-STRIPS IN PLACE, DO NOT GET WET, DO NOT APPLY LOTIONS, CREAMS, ETC. TO THE STERI-STRIPS TYLENOL NEEDED FOR PAIN FOLLOW UP WITH DR. BAGLEY FOR NASAL FRACTURES--CALL IN THE MORNING TO SCHEDULE AN APPOINTMENT FOLLOW UP WITH DR. MARTIN NEXT WEEK FOR FOLLOW UP --CALL IN THE MORNING TO SCHEDULE AN APPOINTMENT All discharge instructions reviewed with patient and/or family. Voiced jerod newton. Scripts Cephalexin (Cephalexin) 500 Mg Tablet 500 MG PO QID, #20 TAB 0 Refills Prov: MARC GIBSON DO 11/18/21 MARC GIBSON DO Nov 18, 2021 05:31
[2021-11-18] MEDS ORDERED: CEPH500T PO (05:47)
--- NOTE | 2021-11-18 06:44 | Diagnostic Imaging Report ---
Indication: Fall. Laceration to bridge of nose. Pain to left forearm. FINDINGS: Radius and ulna are intact. No fractures are seen. The elbow and wrist show good alignment. IMPRESSION: Negative left forearm. Dictated by: Dictated on workstation # [id number]
--- NOTE | 2021-11-18 06:52 | Diagnostic Imaging Report ---
INDICATION: Pelvic pain. FINDINGS: AP pelvis. No pelvic fractures. Femoral heads are in normal articulation bilaterally. Mild arthritic changes are noted of the hips and SI joints. No acute abnormalities. No soft tissue calcifications. IMPRESSION: Osteoarthritic changes noted of the hips. Dictated by: Dictated on workstation # [id number]
--- NOTE | 2021-11-18 06:52 | Diagnostic Imaging Report ---
INDICATION: Fall. Chest pain. Comparison with 09/22/2019. FINDINGS: The lungs are well-aerated. No acute infiltrates. Heart is mildly enlarged. No pulmonary edema. No pneumothorax or pleural effusions. No bony abnormalities. IMPRESSION: Negative portable chest. Dictated by: Dictated on workstation # [id number]
--- NOTE | 2021-11-18 06:53 | Diagnostic Imaging Report ---
Indication: Bilateral knee pain. Comparison with 06/22/2020. FINDINGS: 6 views. There is advanced arthritic disease noted throughout both knees with [id number] appearance. No fractures. There is flattening of the medial femoral condyles of both knees. Sclerotic changes are seen. IMPRESSION: Advanced osteoarthritic changes are seen throughout both knees. There has been continued progression since previous exam. Dictated by: Dictated on workstation # [id number]
== END 2021-11-18 06:07 | disposition home or self-care (01) ==
LOC: EDUNIT# 00:48 → ER 00:54
DX: S02.2XXA Fracture of nasal bones, initial encounter for closed fracture (principal); S16.1XXA Strain of muscle, fascia and tendon at neck level, initial encounter; S51.812A Laceration without foreign body of left forearm, initial encounter; S80.02XA Contusion of left knee, initial encounter; S80.01XA Contusion of right knee, initial encounter; S09.90XA Unspecified injury of head, initial encounter; Z28.310 Unvaccinated for COVID-19; W18.30XA Fall on same level, unspecified, initial encounter; Y93.01 Activity, walking, marching and hiking
CPT/HCPCS: 70450; 70486; 71045; 72125; 72170; 73090; 93041

== ENCOUNTER 2022-05-23 12:04 | Emergency (ER) | payer MEDICARE ==
[~2022-05-23] VITALS: Ht 162 cm; Wt 58.9 kg
[~2022-05-23 12:04] MED LIST changes: +CEPH500T PO
--- NOTE | 2022-05-23 12:34 | ED Neck-Back Pain/Injury ---
General Chief Complaint: Head/Cervical Problems Stated Complaint: RT SHOULDER AND NECK PAIN Nursing Triage Note: PT AMB TO RM 6 PT CO OF NECK AND R ARM PAIN FROM FALL APPROX 2 WEEKS AGO. PT DENIES LOC. RATES PAIN 6/10 WORSE AT TIMES Source of Information: Patient Exam Limitations: No Limitations History of Present Illness Date Seen by Provider: May 23, 2022 Time Seen by Provider: 12:31 Initial Comments Patient is a 82-year-old female who presents ED with neck and right shoulder pain. Patient states 2 weeks ago she was walking up her front porch when she missed the first step falling backwards hitting her upper back neck on the grass. She denied loss of consciousness or on blood thinners. She had pain to the right side of her neck and right shoulder. She was able to move the shoulder but had pain. She reports limited range of motion and feels a popping sensation. She noted some weakness to the right shoulder. Pain radiates to the right side the neck. She reports some mild head pain since the fall. Denies of any blurry vision, increasing head pain, vomiting, chest pain, cough, middle lower back pain, bowel or urine incontinence, saddle paresthesia. She has been taking intermittent ibuprofen and Tylenol as needed for pain. Allergies and Home Medications Allergies Coded Allergies: MELISA Inhibitors (Unverified Allergy, Unknown, 03/31/10) Sulfa (Sulfonamide Antibiotics) (Unverified Allergy, Unknown, 03/31/10) Patient Home Medication List Home Medication List Reviewed: Yes Acetaminophen (Tylenol) 325 Mg Capsule, 650 MG PO Q8H PRN for PAIN-MILD (1-4), (Reported) Entered as Reported by: GRABIEL TRUONG on 09/24/19926 Amoxicillin/Potassium Clav (Augmentin 875-125 Tablet) 1 Each Tablet, 1 EACH PO BID Prescribed by: ROBIN MARTIN on 09/25/19 09 Cephalexin (Cephalexin) 500 Mg Tablet, 500 MG PO QID Prescribed by: MARC GIBSON on 11/18/21 0547 Citalopram Hydrobromide (Citalopram HBr) 20 Mg Tablet, 10 MG PO BID, (Reported) Entered as Reported by: GRABIEL TRUONG on 09/24/19926 Diltiazem HCl (Diltiazem 24Hr ER) 120 Mg Cap.er.24h, 120 MG PO BID, (Reported) Entered as Reported by: GRABIEL TRUONG on 09/24/19926 Estradiol (Estradiol Tablet) 1 Mg Tablet, 1 MG PO DAILY, (Reported) Entered as Reported by: GRABIEL TRUONG on 09/24/19926 Furosemide (Furosemide) 40 Mg Tablet, 40 MG PO DAILY PRN for FLUID RETENTION, (Reported) Entered as Reported by: GRABIEL TRUONG on 09/24/19926 Lactobacillus Acidophilus (Acidophilus Lactobacilli) 1 Each Capsule, 1 EACH PO BID Prescribed by: ROBIN MARTIN on 09/25/19901 Levothyroxine Sodium (Levothyroxine Sodium) 50 Mcg Tablet, 50 MCG PO MALACHI SIMMONS, (Reported) Entered as Reported by: GRABIEL CLEMENTE on 09/23/191441 Levothyroxine Sodium (Levothyroxine Sodium) 75 Mcg Tablet, 75 MCG PO SUN,MO,WE,FR,SAT, (Reported) Entered as Reported by: GRABIEL CLEMENTE on 09/23/191441 Metoprolol Tartrate (Metoprolol Tartrate) 25 Mg Tablet, 25 MG PO BID, (Reported) Entered as Reported by: GRABIEL CLEMENTE on 09/23/19 144 Multivit-Min/FA/Lycopene/Lut (Centrum Silver Tablet) 1 Each Tablet, 1 EACH PO DAILY, (Reported) Entered as Reported by: GRABIEL TRUONG on 09/24/19926 Omeprazole (Omeprazole) 40 Mg Capsule.dr, 40 MG PO DAILY, (Reported) Entered as Reported by: GRABIEL TRUONG on 09/24/19926 Potassium Chloride (K-Tab ER) 10 Meq Tablet.er, 10 MEQ PO DAILY PRN for FLUID RETENTION, (Reported) Entered as Reported by: GRABIEL TRUONG on 09/24/19926 Propylene Glycol/Peg 400 (Systane 0.3-0.4% Eye Drops) 15 Ml Drops, 2 DROPS OU PRN PRN for DRY EYES, (Reported) Entered as Reported by: GRABIEL TRUONG on 09/24/19926 Spironolactone (Spironolactone) 25 Mg Tablet, 25 MG PO DAILY, (Reported) Entered as Reported by: GRABIEL CLEMENTE on 09/23/19 144 Review of Systems Constitutional: No chills, No diaphoresis, No malaise, No weakness EENTM: No ear pain, No blurred vision, No double vision Respiratory: No cough, No dyspnea on exertion, No short of breath Cardiovascular: No chest pain Gastrointestinal: No abdominal pain, No diarrhea, No nausea, No vomiting Genitourinary: No decreased output, No discharge Musculoskeletal: No back pain; joint pain, muscle pain, muscle stiffness Skin: No change in color, No change in hair/nails All Other Systems Reviewed Negative Unless Noted: Yes Past Hmonnwf-Lkleby-Tidqnv Hx Patient Social History Tobacco Use?: No Smoking Status: Former Smoker Substance use?: No Alcohol Use?: No Pt feels they are or have been: No Immunizations Up To Date Tetanus Booster (TDap): Less than 5yrs Influenza Vaccine Up-to-Date: Yes; Up-to-Date First/Initial COVID19 Vaccinat: YES Past Medical History Surgery/Hospitalization HX: HYST, Surgeries: Yes (EXP. LAP AND TOTAL ABD. HYST.) Abdominal, Hysterectomy, Oophorectomy Respiratory: Yes COPD Cardiac: Yes Hypertension Neurological: No Reproductive Disorders: Yes MIXER WET POUR History: Hysterectomy, Menopausal Genitourinary: No Gastrointestinal: Yes Gastroesophageal Reflux, Chronic Constipation Musculoskeletal: Yes (RIGHT KNEE PAIN) Arthritis Endocrine: Yes Hypothyroidsim HEENT: No Cancer: No Psychosocial: Yes Anxiety Integumentary: No Blood Disorders: No Physical Exam Vital Signs Vital Signs - First Documented 05/23/22 12:20 Temp 36.4 Pulse 72 Resp 18 B/P (MAP) 146/68 (94) Pulse Ox 94 Capillary Refill : Less Than 3 Seconds Height, Weight, BMI Height: '" Weight: lbs. oz. kg; 22.00 BMI Method:Stated General Appearance: No Apparent Distress, WD/WN HEENT: PERRL/EOMI, TMs Normal, Normal ENT Inspection, Pharynx Normal Neck: Full Range of Motion, Supple, Other (Right sided cervical paraspinal muscle tenderness. No cervical midline tenderness.) Cardiovascular: Regular Rate, Rhythm, No Edema, No Gallop, No JVD Respiratory: Chest Non Tender, Lungs Clear, Normal Breath Sounds, No Accessory Muscle Use Gastrointestinal: Normal Bowel Sounds, No Organomegaly, No Pulsatile Mass, Non Tender Back: Normal Inspection, No CVA Tenderness, No Vertebral Tenderness Extremity: Other (Swelling noted the right shoulder. Normal passive range of motion. Limited active range of motion secondary to pain above 40 to 45 degrees with flexion abduction. Ham Curer strength 5-5) Neurologic/Psychiatric: Alert, Oriented x3, No Motor/Sensory Deficits, Normal Mood/Affect, director of marketing II-XII Norm as Tested Skin: Normal Color, Warm/Dry Progress/Results/Core Measures Results/Orders My Orders Orders - SAVITA RAMIREZ Shoulder, Right, 3 Views (05/23/22 12:29) Ct Head/Cervical Spine Wo (05/23/22 12:29) Vital Signs/I&O 05/23/22 12:20 Temp 36.4 Pulse 72 Resp 18 B/P (MAP) 146/68 (94) Pulse Ox 94 Blood Pressure Mean: 94 Departure Communication (PCP) Patient with a mechanical fall 2 weeks ago. Complaining of right shoulder pain right-sided neck pain. Neuro exam unremarkable. She has no significant posterior head pain besides the lower occipital. No focal neural deficits but does have limited range of motion in the right shoulder. Due to patient's current complaints and fall CT scan the head and neck and x-ray of the right shoulder was ordered. Review of the x-ray did not show any acute fracture. Radiologist overread was negative for acute fracture. CT scan of the head and neck read by myself did not show any acute fracture, hemorrhaging in the head. Radiologist overread did not show any acute abnormality besides chronic findings. She refused anything for pain. Pain could be secondary to rotator cuff or labrum injury. She is noticing improvement of range of motion which I recommend continue PT at home. She would likely benefit with outpatient physical therapy to help strengthening her shoulder as she is self efficient. Continue with Tylenol and ibuprofen but avoid using excessive ibuprofen. Ice will help with swelling if she noticed increase swelling. Recommend follow-up your PCP within the next week for further evaluation and discuss PT. Provided orthopedic follow-up Dr. Castillo if symptoms progress. Impression Primary Impression: Shoulder pain Disposition: 01 HOME, SELF-CARE Condition: Stable Departure-Patient Inst. Referrals: ROBIN MARTIN MD (PCP/Family) Primary Care Physician LAZARO CASTILLO MD Patient Instructions: Shoulder Pain ED Add. Discharge Instructions: Continue with your range of motion exercises. Tylenol or ibuprofen to help with pain or swelling. Avoid using excessive ibuprofen. Follow-up your primary care physician for further evaluation. If any worsening symptoms return back to ED. Recommend physical therapy All discharge instructions reviewed with patient and/or family. Voiced jerod newton. SAVITA RAMIREZ May 23, 2022 12:34
--- NOTE | 2022-05-23 13:13 | Diagnostic Imaging Report ---
EXAMINATION: Right shoulder radiographs, 3 views. COMPARISON: None. HISTORY: 82-year-old female, right shoulder pain. Fall 2 weeks ago. FINDINGS: The acromioclavicular joint is normally aligned. The humeral head is normally positioned relative to the glenoid. There is no identified acute fracture. The joint spaces are fairly well preserved. There are degenerative changes of the spine. IMPRESSION: 1. No identified acute bony abnormality of the right shoulder. Dictated by: Dictated on workstation # [id number]
--- NOTE | 2022-05-23 13:17 | Diagnostic Imaging Report ---
PROCEDURE: CT head and CT cervical spine without contrast. TECHNIQUE: Multiple contiguous axial images were obtained through the brain and cervical spine without the use of intravenous contrast. Sagittal and coronal reformations through the cervical spine were then performed. Auto Exposure Controls were utilized during the CT exam to meet ALARA standards for radiation dose reduction. INDICATION: Fall results in head and neck pain. Compared with exam 11/18/2021. CT HEAD: There is no intracranial hemorrhage, no acute extra-axial collections, no cerebral edema, no hydrocephalus. Cerebral cortical volume stable. Basilar cisterns patent. No mass or mass effect. Calcifications of the dura chronic and benign. No calvarial fracture deformity. CERVICAL SPINE: Degenerative changes to the discs, endplates and facets throughout the mid to lower cervical level stable and chronic. The alignment anatomic. The vertebral statures stable. No fracture or paravertebral hemorrhage. Carotid atherosclerotic vascular calcifications chronic. No acute abnormality. No change. IMPRESSION: Stable chronic senescent findings at CT head and cervical spine with no fracture, hemorrhage or other acute abnormalities. Dictated by: Dictated on workstation # [id number]
[2022-05-23 13:57] VITALS: BP 146/68
== END 2022-05-23 13:57 | disposition home or self-care (01) ==
LOC: EDUNIT# 12:04 → ER 12:07
DX: M25.511 Pain in right shoulder (principal); M54.2 Cervicalgia; M25.411 Effusion, right shoulder; Z87.891 Personal history of nicotine dependence; W10.8XXA Fall (on) (from) other stairs and steps, initial encounter; Y93.01 Activity, walking, marching and hiking
CPT/HCPCS: 70450; 72125; 73030

== ENCOUNTER 2022-10-24 05:35 | Outpatient (CLI) | payer MEDICARE ==
[~2022-10-24] VITALS: Ht 160 cm; Wt 159.1 kg
[~2022-10-24 05:35] MED LIST changes: +POTA-185 PO; -POTA10TA PO
== END 2022-10-24 10:20 | disposition home or self-care (01) ==
LOC: PREOP 05:35
PROVIDERS: ATTEND Specialist
DX: Z01.818 Encounter for other preprocedural examination (principal)

== ENCOUNTER 2022-10-27 09:51 | Day surgery (SDC) | payer MEDICARE ==
[~2022-10-27] VITALS: Ht 175 cm; Wt 159.1 kg
[2022-10-27] MEDS ORDERED: LIDOCAINE PF 1% 2 ML VIAL IR PRN (10:45)
[2022-10-27] MEDS ORDERED: POVIDONE (BETADINE) OPHTH SOLN 5% 30 ML OP ONE (10:45)
[2022-10-27] MEDS ORDERED: TIMOLOL 0.5% (CATARACTS) 0.3 ML BTL OU PRN (10:45)
[2022-10-27] MEDS: TETRACAINE 0.5% OPHTH SOLN 4 ML BTL (SINGLE DOSE ONLY) OU PRN ×4 (10:59→11:08)
[2022-10-27 11:00] VITALS: BP 137/56
[2022-10-27] MEDS: MOXIFLOXACIN OPHTH SOLN 5 MG/ML 0.3 ML SYRINGE OP ONE ×2 (11:01→11:58)
[2022-10-27] MEDS: TROPICAMIDE 1% OPH SOLN (MYDRIACYL) 15 ML BTL OP SCH ×3 (11:04→11:12)
[2022-10-27] MEDS: PHENYLEPHRINE 10% OPHTH (NEO-SYN) 5 ML BTL OU SCH ×3 (11:04→11:12)
--- NOTE | 2022-10-27 11:49 | Ophthalmologist Pre-Op Note ---
Pre-Operative Progress Note H&P Reviewed The H&P was reviewed, patient examined and no changes noted. Date H&P Reviewed: Oct 27, 2022 Time H&P Reviewed: 11:49 Pre-Op Dx Cataract, Right Eye GEOFFREY STOUT MD Oct 27, 2022 11:49
[2022-10-27] MEDS ORDERED: MIDAZOLAM 2 MG/2 ML (VERSED) VIAL ONE (11:54)
--- NOTE | 2022-10-27 12:11 | Ophthalmology Operative Report ---
Cataract removal/placement IOL PREOPERATIVE DIAGNOSIS: Cataract Right Eye POSTOPERATIVE DIAGNOSIS: Cataract Right Eye PROCEDURE: Cataract removal and placement of posterior chamber implant, right eye SURGEON: Benjamin Stout ANESTHESIA: Topical with sedation COMPLICATIONS: None ESTIMATED BLOOD LOSS: Minimal DESCRIPTION OF PROCEDURE: After proper informed consent was obtained, the patient, a 82 female, was taken to the Operating Room and the right eye was anesthetized with tetracaine. The right eye was then prepped and draped in the usual manner. A wire lid speculum was placed. A paracentesis was made at the left hand position. Preservative free lidocaine was injected into the anterior chamber followed by viscoelastic. A clear corneal incision was made in the temporal position. A capsulorrhexis was preformed and the central nuclear and cortical material were removed. The posterior capsule was polished and Abdon 22.5 AU00T0 IOL was placed into the capsular bag. The residual viscoelastic was aspirated and balanced saline solution was injected into the anterior chamber. Moxifloxacin was injected into the anterior chamber. The wound was checked and found to be water tight. The patient tolerated the procedure well without complications. BENJAMIN STOUT MD Oct 27, 2022 12:11
[2022-10-27 12:51] VITALS: BP 147/106
--- NOTE | 2022-10-27 14:01 | Anesthesia-General Post-Op ---
MAC Patient Condition Mental Status/LOC: Same as Preop Cardiovascular: Satisfactory Nausea/Vomiting: Absent Respiratory: Satisfactory Pain: Controlled Complications: Absent Post Op Complications Complications None Follow Up Care/Instructions Patient Instructions None needed. Anesthesiology Discharge Order Discharge Order Patient is doing well, no complaints, stable vital signs, no apparent adverse anesthesia problems. No complications reported per nursing. ANGEL JURADO CRNA Oct 27, 2022 14:01
== END 2022-10-27 12:53 | disposition home or self-care (01) ==
LOC: SDC 09:51
PROVIDERS: ATTEND Specialist
DX: H25.9 Unspecified age-related cataract (principal); Z87.891 Personal history of nicotine dependence
CPT/HCPCS: 66984; V2632

== ENCOUNTER 2022-11-06 11:55 | Outpatient (CLI) | payer MEDICARE | END 2022-11-06 14:44 | disposition home or self-care (01) | LOC: PREOP 11:55 | PROVIDERS: ATTEND Specialist | DX: Z01.818 Encounter for other preprocedural examination (principal) ==

== ENCOUNTER 2022-11-10 07:30 | Day surgery (SDC) | payer MEDICARE ==
[~2022-11-10] VITALS: Ht 160 cm; Wt 159.1 kg
[2022-11-10] MEDS ORDERED: MIDAZOLAM INJ 2 MG/2 ML VIAL ONE (07:35)
[2022-11-10] MEDS: TETRACAINE 0.5% OPHTH SOLN 4 ML BTL (SINGLE DOSE ONLY) OU PRN ×4 (07:39→07:54)
[2022-11-10] MEDS: PHENYLEPHRINE 10% OPHTH SOLN 5 ML BTL OU SCH ×3 (07:44→07:54)
[2022-11-10] MEDS: TROPICAMIDE 1% OPH SOLN (MYDRIACYL) 15 ML BTL OP SCH ×3 (07:44→07:54)
[2022-11-10] MEDS ORDERED: MOXIFLOXACIN OPHTH SOLN 5 MG/ML 0.3 ML SYRINGE OP ONE (07:45)
[2022-11-10] MEDS ORDERED: POVIDONE IODINE OPHTH SOLN 5% 30 ML OP ONE (07:45)
[2022-11-10] MEDS ORDERED: TIMOLOL 0.5% (CATARACTS) 0.3 ML BTL OU PRN (07:45)
[2022-11-10] MEDS ORDERED: LIDOCAINE PF 1% 2 ML VIAL IR PRN (07:45)
[2022-11-10 07:46] VITALS: BP 149/50
--- NOTE | 2022-11-10 08:19 | Ophthalmologist Pre-Op Note ---
Pre-Operative Progress Note H&P Reviewed The H&P was reviewed, patient examined and no changes noted. Date H&P Reviewed: Nov 10, 2022 Time H&P Reviewed: 08:19 Pre-Op Dx Cataract, Left Eye GEOFFREY STOUT MD Nov 10, 2022 08:19
--- NOTE | 2022-11-10 08:41 | Ophthalmology Operative Report ---
Cataract removal/placement IOL PREOPERATIVE DIAGNOSIS: Cataract Left Eye POSTOPERATIVE DIAGNOSIS: Cataract Left Eye PROCEDURE: Cataract removal and placement of posterior chamber implant, left eye SURGEON: Benjamin Stout ANESTHESIA: Topical with sedation COMPLICATIONS: None ESTIMATED BLOOD LOSS: Minimal DESCRIPTION OF PROCEDURE: After proper informed consent was obtained, the patient, a 82 female, was taken to the Operating Room and the left eye was anesthetized with tetracaine. The left eye was then prepped and draped in the usual manner. A wire lid speculum was placed. A paracentesis was made at the left hand position. Preservative free lidocaine was injected into the anterior chamber followed by viscoelastic. A clear corneal incision was made in the temporal position. A capsulorrhexis was preformed and the central nuclear and cortical material were removed. The posterior capsule was polished and an Abdon 22.0 AU00T0 was placed into the capsular bag. The residual viscoelastic was aspirated and balanced saline solution was injected into the anterior chamber. Moxifloxacin was injected into the anterior chamber. The wound was checked and found to be water tight. The patient tolerated the procedure well without complications. BENJAMIN STOUT MD Nov 10, 2022 08:41
[2022-11-10 08:43] VITALS: BP 147/63
--- NOTE | 2022-11-10 11:19 | Anesthesia-General Post-Op ---
MAC Patient Condition Mental Status/LOC: Same as Preop Cardiovascular: Satisfactory Nausea/Vomiting: Absent Respiratory: Satisfactory Pain: Controlled Complications: Absent Post Op Complications Complications None Follow Up Care/Instructions Patient Instructions None needed. Anesthesiology Discharge Order Discharge Order Patient is doing well, no complaints, stable vital signs, no apparent adverse anesthesia problems. No complications reported per nursing. LAZARO CAPONE CRNA Nov 10, 2022 11:19
== END 2022-11-10 08:47 | disposition home or self-care (01) ==
LOC: SDC 07:30
PROVIDERS: ATTEND Specialist
DX: H25.9 Unspecified age-related cataract (principal); Z87.891 Personal history of nicotine dependence
CPT/HCPCS: 66984; V2632